=== PATIENT | male | born 1970 | race American Indian/Alaskan Native ===

== ENCOUNTER 2018-03-08 14:19 | Emergency (ER) | payer SELFPAY ==
--- NOTE | 2018-03-08 18:14 | Emergency Department Report ---
ED General Adult HPI - General Chief complaint: Extremity Problem,Nontraumatic Stated complaint: SWELLING IN HANDS / HTN Time Seen by Provider: 03/08/18 18:03 Source: patient Mode of arrival: Ambulatory Limitations: No Limitations - History of Present Illness Initial comments: Kwaku is 47 years old male history of hypertension. Patient stated that he is out of his medication for more than 7 month. He stated that he does not have insurance. Patient also complaining of right hand swelling and redness for the last 4 days. Patient denied any fever, headache, neck pain or neck stiffness, chest pain or shortness of breath. - Related Data Previous Rx's Medication Instructions Recorded Last Taken Type Atenolol [Tenormin] 50 mg PO DAILY #30 tab 08/21/14 Unknown Rx HYDROcodone/ACETAMINOPHEN [Lortab 1 each PO Q6HR PRN #10 tablet 08/21/14 Unknown Rx 5-325 mg Tablet] NIFEdipine XL [Procardia Xl] 60 mg PO QDAY #30 tablet 08/21/14 Unknown Rx Allergies Allergy/AdvReac Type Severity Reaction Status Date / Time Penicillins Allergy Unknown Verified 08/21/14 14:21 ED Review of Systems ROS: Stated complaint: SWELLING IN HANDS / HTN Other details as noted in HPI Comment: All other systems reviewed and negative Constitutional: denies: chills, fever Respiratory: denies: cough, orthopnea, shortness of breath, SOB with exertion Cardiovascular: denies: chest pain, palpitations, dyspnea on exertion Gastrointestinal: denies: abdominal pain, nausea, vomiting Neurological: denies: headache, weakness ED Past Medical Hx - Past Medical History Hx Hypertension: Yes Additional medical history: gout - Social History Smoking Status: Current Some Day Smoker Substance Use Type: None - Medications Home Medications: Home Medications Medication Instructions Recorded Confirmed Last Taken Type Atenolol [Tenormin] 50 mg PO DAILY #30 tab 08/21/14 Unknown Rx HYDROcodone/ACETAMINOPHEN [Lortab 1 each PO Q6HR PRN #10 tablet 08/21/14 Unknown Rx 5-325 mg Tablet] NIFEdipine XL [Procardia Xl] 60 mg PO QDAY #30 tablet 08/21/14 Unknown Rx ED Physical Exam - General Limitations: No Limitations General appearance: alert, in no apparent distress - Head Head exam: Present: atraumatic, normocephalic, normal inspection - Eye Eye exam: Present: normal appearance - ENT ENT exam: Present: normal exam - Neck Neck exam: Present: normal inspection, full ROM. Absent: tenderness, meningismus - Respiratory Respiratory exam: Present: normal lung sounds bilaterally. Absent: respiratory distress, wheezes, rales, rhonchi, stridor, chest wall tenderness - Cardiovascular Cardiovascular Exam: Present: regular rate, normal rhythm, normal heart sounds - GI/Abdominal GI/Abdominal exam: Present: soft, normal bowel sounds. Absent: distended, tenderness, guarding, rebound, rigid, mass, bruit, pulsatile mass - Extremities Exam Extremities exam: Present: full ROM, normal capillary refill, other (the dorsum of the right hand showed warmness, redness with clinical evidence of cellulitis. No clinical evidence of abscess or necrotizing fasciitis.) - Back Exam Back exam: Present: normal inspection, full ROM. Absent: tenderness, CVA tenderness (R), CVA tenderness (L), muscle spasm, paraspinal tenderness, vertebral tenderness - Neurological Exam Neurological exam: Present: alert, oriented X3, CN II-XII intact, normal gait - Skin Skin exam: Present: warm, intact, normal color ED Course Vital Signs 03/08/18 14:31 Temperature 98.7 F Pulse Rate 94 H Respiratory 16 Rate Blood Pressure 185/123 O2 Sat by Pulse 100 Oximetry Critical care attestation.: If time is entered above; I have spent that time in minutes in the direct care of this critically ill patient, excluding procedure time. ED Disposition Clinical Impression: Malignant hypertension, Cellulitis of hand Disposition: DC-01 TO HOME OR SELFCARE Is pt being admited?: No Condition: Stable Instructions: Hypertension (ED), Cellulitis (ED) Referrals: PRIMARY CARE,MD [Primary Care Provider] - 3-5 Days
[2018-03-08 18:45] VITALS: BP 180/113
== END 2018-03-08 18:52 | disposition home or self-care (01) ==
LOC: ED 14:19
DX: I10 Essential (primary) hypertension (principal); L03.113 Cellulitis of right upper limb; F17.200 Nicotine dependence, unspecified, uncomplicated; Z88.0 Allergy status to penicillin
CPT/HCPCS: 99282

== ENCOUNTER 2019-01-10 05:24 | Inpatient (IN) | payer SELFPAY ==
[2019-01-10] MEDS ORDERED: ASPIRIN PO ONE (05:30)
[2019-01-10 05:51] LABS: Basophils # (Auto) 0.1 K/mm3 (0.0-0.1); Basophils % (Auto) 0.6 % (0.0-1.8); Eosinophils % (Auto) 0.5 % (0.0-4.3); Hematocrit 44.3 % (35.5-45.6); Hemoglobin 15.5 gm/dl (11.8-15.2); Lymphocytes # (Auto) 2.5 K/mm3 (1.2-5.4); Lymphocytes % (Auto) 24.6 % (13.4-35.0); Mean Corpuscular HGB Conc 35 % (32-34); Mean Corpuscular Volume 97 fl (84-94); Monocytes # (Auto) 0.6 K/mm3 (0.0-0.8); Monocytes % (Auto) 6.1 % (0.0-7.3); Platelet Count 221 K/mm3 (140-440); Red Blood Count 4.59 M/mm3 (3.65-5.03); Red Cell Distribution Width 12.6 % (13.2-15.2)
[2019-01-10] MEDS ORDERED: HEPARIN 10,000 UNITS/10 ML IV ONE (06:02)
[2019-01-10 06:04] LABS: BUN/Creatinine Ratio 8; Blood Urea Nitrogen 9 mg/dL (9-20); Calcium 8.4 mg/dL (8.4-10.2); Hemolysis Index 7
[2019-01-10] MEDS ORDERED: NITRO-BID 2% TP ONE (06:05)
[2019-01-10] MEDS ORDERED: ZOFRAN IV ONE (06:06)
[2019-01-10] MEDS ORDERED: SUBLIMAZE IV ONE (06:06)
--- NOTE | 2019-01-10 06:06 | Emergency Department Report ---
HPI - General Chief Complaint: Chest Pain Time Seen by Provider: 01/10/19 06:01 - [facility] HPI: Room 6 The patient is a 48-year-old male presenting with a chief complaint of chest pain. The patient states for the past 4-5 hours he's had left-sided chest pain. The patient states the pain has been intermittent and he describes the pain as a discomfort. Patient denies shortness of breath but admits to nausea and vomiting. The patient gives his pain a score of 7/10 Location: Chest Duration: [See above] Quality: "Discomfort" Severity: 7/10 Modifying factors: [see above] Context: [see above] Mode of transportation: [not driving] ED Past Medical Hx - Past Medical History Previous Medical History?: Yes Hx Hypertension: Yes Additional medical history: gout - Surgical History Past Surgical History?: No - Family History Family history: no significant - Social History Smoking Status: Current Every Day Smoker Substance Use Type: Alcohol - Medications Home Medications: Home Medications Medication Instructions Recorded Confirmed Last Taken Type Atenolol [Tenormin] 50 mg PO DAILY #30 tab 08/21/14 Unknown Rx HYDROcodone/ACETAMINOPHEN [Lortab 1 each PO Q6HR PRN #10 tablet 08/21/14 Unknown Rx 5-325 mg Tablet] NIFEdipine XL [Procardia Xl] 60 mg PO QDAY #30 tablet 08/21/14 Unknown Rx Atenolol [Tenormin] 50 mg PO DAILY #30 tab 03/08/18 Unknown Rx Doxycycline [Vibramycin CAP] 100 mg PO Q12HR #20 capsule 03/08/18 Unknown Rx NIFEdipine XL [Procardia Xl] 60 mg PO QDAY #30 tablet 03/08/18 Unknown Rx ED Review of Systems ROS: Stated complaint: CHEST PAIN Other details as noted in HPI Constitutional: denies: diaphoresis Eyes: denies: eye pain ENT: denies: throat pain Respiratory: denies: shortness of breath Cardiovascular: chest pain Endocrine: no symptoms reported Gastrointestinal: nausea, vomiting Genitourinary: denies: dysuria Musculoskeletal: denies: back pain Neurological: denies: headache Physical Exam - Physical Exam Physical Exam: GENERAL: The patient is well-developed well-nourished male lying on stretcher not appearing to be in acute distress. [] HEENT: Normocephalic. Atraumatic. Extraocular motions are intact. Patient has moist mucous membranes. NECK: Supple. No meningitic signs are noted. There is no adenopathy noted. CHEST/LUNGS: There is no respiratory distress noted. HEART/CARDIOVASCULAR: Regular. There is no tachycardia. ABDOMEN: There is no abdominal distention. SKIN: There is no rash. There is no edema. There is no diaphoresis. NEURO: The patient is awake, alert, and oriented. The patient is cooperative. The patient has normal speech and gait. MUSCULOSKELETAL: There is no evidence of acute injury. ED Course - Consultations Consultation #1: 01/10/19 05:44 First EKG sent to Dr. Vo and case discussed- epeat EKG 05:58 Second EKG sent to Dr. Vo- activate code STEMI ED Medical Decision Making - Lab Data Result diagrams: 01/10/19 05:38 - EKG Data -: EKG Interpreted by Me EKG shows normal: sinus rhythm Rate: normal - EKG Data When compared to previous EKG there are: previous EKG unavailable Interpretation: acute TN - Differential Diagnosis stemi Critical care attestation.: If time is entered above; I have spent that time in minutes in the direct care of this critically ill patient, excluding procedure time. 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
[2019-01-10 06:26] LABS: INR 0.95 (0.87-1.13); Partial Thromboplastin Time 24.7 Sec. (24.2-36.6)
[2019-01-10] MEDS ORDERED: HEPARIN/ 0.45% NACL-25,000 UNIT/500 ML 25,000 UNIT/500 ML BAG IV SCH (06:30)
[2019-01-10] MEDS ORDERED: HEPARIN/NS 5000 UNIT/500ML(CATH LAB) 1,000 ML IR ONE (06:38)
[2019-01-10] MEDS ORDERED: XYLOCAINE 2% INFILTRATI ONE (06:39)
[2019-01-10] MEDS ORDERED: NITROGLYCERIN SYRINGE 3 ML ONE (06:39)
[2019-01-10] MEDS ORDERED: CALAN ONE (06:39)
--- NOTE | 2019-01-10 06:42 | XRay Report ---
PROCEDURE: XR CHEST 1V AP TECHNIQUE: A portable upright view of the chest was submitted. HISTORY: Chest Pain COMPARISONS: None FINDINGS: The heart size and mediastinum appear normal. The lungs are not congested. There are no infiltrates o r effusions. The bones and soft tissues do not show any acute changes. IMPRESSION: No acute cardiopulmonary process.. This document is electronically signed by Rylan Acosta MD., January 10 2019 06:40:11 AM ET
[2019-01-10] MEDS ORDERED: NACL 0.9% 1000 ML 1,000 ML ONE ×2 (06:44→07:27)
[2019-01-10] MEDS ORDERED: SUBLIMAZE ONE (06:45)
[2019-01-10] MEDS ORDERED: VERSED ONE (06:45)
[2019-01-10] MEDS: HEPARIN 10,000 UNITS/10 ML ONE ×3 (06:49→07:38)
[2019-01-10] MEDS ORDERED: CORDARONE IV ONE (07:18)
[2019-01-10] MEDS ORDERED: INTROPIN DRIP 800 MG/D5W 250 ML 800 MG/250 ML BAG IV ONE (07:21)
[2019-01-10] MEDS ORDERED: PLAVIX ONE (07:47)
[2019-01-10] MEDS ORDERED: ALUM-MAG HYDROX-SIMETH 200-200-20MG/5ML ONE (07:47)
--- NOTE | 2019-01-10 08:09 | Cardiac Catherization Report ---
CARDIAC CATHETERIZATION REFERRING PHYSICIAN: ER physician, Dr. Graham. INDICATION FOR PROCEDURE: The patient is a pleasant 48-year-old gentleman, who presents with 7 hours of chest pain, found to have borderline inferior ST elevation. STEMI protocol was initiated. Heparin and aspirin given. The patient with active chest pain. 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 Yaw's test in right hand was normal. A 2 mL of 2% lidocaine used to anesthetize the right wrist. A standard 6-Croatian hydrophilic sheath was placed in the right radial artery via modified Seldinger technique. Spasmolytic cocktail was given, buffered with blood. Next, a JL3.5 catheter used to engage the left main. No dampening or ventricularization. Cineangiography performed in all projections. Next JR4 guide used to cross the aortic valve under fluoroscopic guidance. Left ventriculography performed in 30 BROOKS and 30 SWEDISH projections via hand injections, catheter flushed. Manual pullback performed with continuous pressure monitoring. Catheter used to engage the right coronary. No dampening or ventricularization. Cineangiography performed in all projections. FINDINGS: Aortic pressure is 150/80, LV pressure is 150, LVP of 15 mmHg. Left ventriculography reveals basal inferior dyskinesis with preserved ejection fraction of 55-60%. Left main without significant disease, bifurcates left anterior descending and left circumflex. The left system is a large system, codominant. Left circumflex is a moderate sized vessel, courses AV groove, gives off a left PDA and OM trunk. Mild to moderate nonobstructive disease noted, 25-30% mid left circumflex stenosis identified. LAD is a large vessel, courses anterior intergroove, wraps around the apex. There is a 25% stenosis in the mid LAD, but no obstructive disease. The right coronary is a very tortuous vessel with a 100% acute thrombotic occlusion in the mid segment, tortuous and small. At this point, we turned our attention to PCI. Given location of lesion and the patient's heart rate, a temporary venous pacemaker was placed under fluoroscopic guidance after right femoral venous access was gained. Heparin was given. Abnormal ACT is confirmed. At this point, we used a Whisper extra support wire to cross the lesion, which is very tortuous with minimal difficulty. Next, used a 2.0 x 12 balloon to predilate the lesion. Resumption of VERA 3 flow at this point. AIVR was noted at this time temporarily. IV amiodarone was given. Next, we placed a 2.25 x 12 Jose drug-eluting stent at the culprit lesion. Next, we placed another 2.25 x 18 overlapping proximally Jose stent with excellent final angiographic result with a balloon dilated overlap, excellent final angiographic result. No complications. Given the significant tortuosity and small sized vessel, I did not feel like intravascular ultrasound would pass through the tortuosity and small vessel. Excellent final result, VERA 3 flow. The patient is chest pain free. CONCLUSIONS: 1. Acute atherothrombotic occlusion of a small tortuous mid right codominant mid right coronary in the setting of an inferior ST elevation myocardial infarction. A. Successful primary PCI with placement of 2 overlapping drug-eluting stents (Jose 2.25 x 12, 2.25 x 18) with excellent final angiographic result. Chest pain is resolved. 2. Mild to moderate nonobstructive disease in the left system. 3. Left ventriculography reveals inferobasal dyskinesis, estimated ejection fraction of 55-60%. 4. Normal LVEDP. 5. Hypertension. At this point, we will pull the temporary pacemaker a standard radial care. Aspirin, Plavix, statin, blood pressure control. Aggressive primary and secondary prevention measures. The patient will be admitted to the hospital. Echocardiogram will be ordered. Nutrition consult. Results of procedure were explained to the patient and family. All questions and concerns were addressed. The patient is clinically stable at this point. JOB# [id number] GEOFF/VASU
--- NOTE | 2019-01-10 08:40 | Consultation ---
CARDIOLOGY CONSULTATION REFERRING PHYSICIAN: Pam Graham MD, in the ER. REASON FOR CONSULTATION: Advice and opinion regarding chest pain and abnormal EKG. HISTORY OF PRESENT ILLNESS: The patient is a 48-year-old gentleman with a history of hypertension, has not seen physicians in sometime with active tobacco abuse who presents with at least 6 hours of chest pain. He is not diaphoretic, but having active chest pain. No nausea or vomiting. No fevers or chills. No headache. EKG reveals inferior ST elevation. STEMI protocol was initiated. No history of bleeding diathesis, abdominal pain, hematochezia, melena, rash, syncope. PAST MEDICAL HISTORY: Hypertension and tobacco abuse. SOCIAL HISTORY: Denies any drug or alcohol abuse. 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 Unknown family. FAMILY HISTORY: He is unclear about his family history of heart disease. He does take antihypertensives, but does not have a primary care physician. REVIEW OF SYSTEMS: As per HPI. ALLERGIES: ALLERGIC TO PENICILLIN. OUTPATIENT MEDICATIONS: Reviewed. PHYSICAL EXAMINATION: VITAL SIGNS: Blood pressure is 140/80. He is afebrile. Tele reveals sinus rhythm, no dysrhythmias. O2 sat is 99% on room air. GENERAL: This is a middle-aged gentleman in mild distress. HEENT: Sclerae anicteric. PERRL. NECK: Supple. No mass or JVD. CHEST: Clear to auscultation bilaterally. Good air movement. CARDIOVASCULAR: Regular rate, regular rhythm, S1, S2. ABDOMEN: Soft, nontender, nondistended. Normoactive bowel sounds in all 4 quadrants. No mass or bruits. EXTREMITIES: No cyanosis, clubbing, edema. Good peripheral pulses. SKIN: Intact. No rashes. LABORATORY DATA: Labs are pending. DIAGNOSTIC DATA: EKG reveals inferior ST elevation with mild reciprocal lateral changes. ASSESSMENT: Acute inferior ST elevation myocardial infarction, late presentation greater than 6 hours. Urgent left heart catheterization versus STEMI call. The patient reloaded with aspirin and heparin. Further plans contingent on cath results. JOB# [id number] SBM/NTS
--- NOTE | 2019-01-10 09:59 | Event Note ---
Date: 01/10/19 Pt presented this AM with inferior STEMI and subsequently underwent LHC with PCI of RCA. Pt tx to CCU. Currently stable cardiac status with no current cardiac complaints. Await echo. Cont present medical management. Ronny MORALES NP / DR. HAY
[2019-01-10] MEDS: ECOTRIN PO SCH (10:32)
[2019-01-10] MEDS: NACL 0.9% 1000 ML 1,000 ML IV SCH (17:26)
[2019-01-10] MEDS ORDERED: NITROSTAT SL ONE (19:28)
[2019-01-10] MEDS ORDERED: HEPARIN/ 0.45% NACL-25,000 UNIT/500 ML ONE (19:28)
[2019-01-10] MEDS: ZESTRIL PO SCH (21:58)
--- NOTE | 2019-01-11 03:52 | XRay Report ---
PROCEDURE: XR CHEST 1V AP TECHNIQUE: Chest radiograph single view. HISTORY: post pci COMPARISONS: 01/10/2019 . FINDINGS: Heart: Normal. Mediastinum/Vessels: Normal. Lungs/Pleural space: Normal. Bony thorax: No acute osseous abnormality. Life support devices: None. IMPRESSION: No acute cardiopulmonary abnormality. This document is electronically signed by Saad Contreras MD., January 11 2019 03:50:43 AM ET
[2019-01-11 05:04] LABS: BUN/Creatinine Ratio 9; Blood Urea Nitrogen 9 mg/dL (9-20); Calcium 7.7 mg/dL (8.4-10.2); Creatine Kinase MB 19.6 ng/mL (0.0-4.0); Hemolysis Index 7
[2019-01-11 05:24] LABS: Chol/HDL Ratio 4.37 %; HDL Cholesterol 32 mg/dL (40-59); LDL Cholesterol,Direct 87 mg/dL (50-130)
[2019-01-11] MEDS: NACL 0.9% 1000 ML 1,000 ML IV SCH (06:40)
[2019-01-11] MEDS: ECOTRIN PO SCH (10:25)
[2019-01-11] MEDS: PLAVIX PO SCH (10:26)
[2019-01-11] MEDS: ZESTRIL PO SCH (10:26)
--- NOTE | 2019-01-11 11:08 | Progress Note ---
Assessment and Plan Echo reviewed - EF 50-55%, no significant abnormalities. Currently stable cardiac status. Initiate lopressor. Cont all other present cardiac management. Tx to tele and increase activity/ambulation. Likely d/c home in AM. The patient has been seen in conjunction with Dr. Washington who agrees with the assessment and plan of care. - Patient Problems (1) STEMI (ST elevation myocardial infarction) Current Visit: Yes Status: Acute (2) CAD (coronary artery disease) Current Visit: Yes Status: Chronic (3) Stented coronary artery Current Visit: Yes Status: Chronic (4) HTN (hypertension) Current Visit: Yes Status: Chronic (5) Tobacco use Current Visit: Yes Status: Chronic Subjective Date of service: 01/11/19 Principal diagnosis: stemi Interval history: pt resting in bed, no current complaints. Objective Last Vital Signs Temp 98.4 F 01/11/19 08:00 Pulse 69 01/11/19 10:26 Resp 13 01/11/19 08:00 BP 129/82 01/11/19 10:26 Pulse Ox 96 01/11/19 08:00 - Physical Examination General: No Apparent Distress HEENT: Positive: PERRL, Normocephaly, Mucus Membranes Moist Neck: Positive: neck supple, trachea midline Cardiac: Positive: Reg Rate and Rhythm, S1/S2 Lungs: Positive: clear to auscultation Neuro: Positive: Grossly Intact Abdomen: Positive: Soft. Negative: Tender Skin: Negative: Rash Musculoskeletal: No Pain Extremities: Absent: edema - Labs and Meds Cardiac Enzymes 01/11/19 Range/Units 03:56 CK-MB (CK-2) 19.6 H (0.0-4.0) ng/mL Lipids 01/11/19 Range/Units 03:56 Triglycerides 281 H (2-149) mg/dL Cholesterol 140 (50-199) mg/dL HDL Cholesterol 32 L (40-59) mg/dL Cholesterol/HDL Ratio 4.37 % Comprehensive Metabolic Panel 01/11/19 Range/Units 03:56 Sodium 141 (137-145) mmol/L Potassium 3.7 (3.6-5.0) mmol/L Chloride 104.5 (98-107) mmol/L Carbon Dioxide 26 (22-30) mmol/L BUN 9 (9-20) mg/dL Creatinine 1.0 (0.8-1.5) mg/dL Glucose 111 H (75-100) mg/dL Calcium 7.7 L (8.4-10.2) mg/dL - Imaging and Cardiology EKG: report reviewed, image reviewed Echo: report reviewed Cardiac cath: report reviewed - Telemetry EKG Rhythm: Sinus Rhythm
--- NOTE | 2019-01-11 11:12 | Consultation ---
History of Present Illness Consult date: 01/11/19 Reason for consult: chest pain, other History of present illness: 48-year-old -Mal[place] male presenting with a chief complaint of chest pa in. Currently admission notes from patient, he presented with 4-5 hours of chest pain mostly on the left side. They have been intermittent also does call for persistent. No shortness of breath, hemoptysis noted but felt know she had a and have vomiting. Pain was 7/10 in intensity. EKG showed inferior ST segment elevation with reciprocal changes. Patient presented this a.m. when inferior STEMI and subsequently underwent LHC with PCI of RCA. Patient transferred to ICU for treatment. Awaiting echocardiogram and cardiac management. CCM consultation requested while in the ICU Medications and Allergies Allergies Allergy/AdvReac Type Severity Reaction Status Date / Time Penicillins Allergy Unknown Verified 08/21/14 14:21 Home Medications Medication Instructions Recorded Confirmed Last Taken Type HYDROcodone/ACETAMINOPHEN [Lortab 1 each PO Q6HR PRN #10 tablet 08/21/14 01/10/19 Unknown Rx 5-325 mg Tablet] Atenolol [Tenormin] 50 mg PO DAILY #30 tab 03/08/18 01/10/19 01/08/19 Rx NIFEdipine XL [Procardia Xl] 60 mg PO QDAY 01/10/19 01/10/19 01/08/19 History Active Meds: Active Medications Aspirin (Ecotrin) 325 mg PO QDAY [facility] Last Admin: 01/11/19 10:25 Dose: 325 mg Documented by: Atorvastatin Calcium (Lipitor) 80 mg PO QHS [facility] Last Admin: 01/10/19 21:59 Dose: 80 mg Documented by: Clopidogrel Bisulfate (Plavix) 75 mg PO QDAY [facility] Last Admin: 01/11/19 10:26 Dose: 75 mg Documented by: Lisinopril (Zestril) 10 mg PO QDAY [facility] Last Admin: 01/11/19 10:26 Dose: 10 mg Documented by: Metoprolol Tartrate (Lopressor) 12.5 mg PO BID [facility] Physical Examination Vital signs: Vital Signs Temp Pulse Resp BP Pulse Ox 97.5 F L 71 18 187/123 98 01/10/19 05:29 01/10/19 05:29 01/10/19 05:29 01/10/19 05:29 01/10/19 05:29 General appearance: no acute distress Eyes: non-icteric ENT: oropharynx moist Neck: supple, no JVD Effort: normal Ascultation: Bilateral: clear Cardiovascular: regular rate and rhythm Gastrointestinal: normoactive bowel sounds, non-distended Integumentary: normal Extremities: no cyanosis, no edema, other (no bleeding) Musculoskeletal: no deformities normal mental status, non-focal exam, CN II-XII normal, motor strength normal and mood appropriate, affect normal Results - Laboratory Findings CBC and BMP: 01/10/19 05:38 01/11/19 03:56 PT/INR, D-dimer PT 13.3 Sec. (12.2-14.9) 01/10/19 06:09 INR 0.95 (0.87-1.13) 01/10/19 06:09 Abnormal lab findings: Abnormal Labs 01/10/19 01/10/19 01/11/19 05:38 05:38 03:56 Hgb 15.5 H MCV 97 H MCH 34 H MCHC 35 H RDW 12.6 L Sodium 135 L Chloride 97.8 L Glucose 131 H 111 H Calcium 7.7 L Total Creatine Kinase 386 H CK-MB (CK-2) 19.6 H CK-MB (CK-2) Rel Index 5.0 H Troponin T 1.470 H* D Triglycerides 281 H HDL Cholesterol 32 L - Diagnostic Findings Chest x-ray: report reviewed, image reviewed Assessment and Plan STEMI. -Status post successful LHC procedure Hypertension. Recently uncontrolled Hyperlipidemia Former smoker. May benefit from screening spirometry for COPD Recommendations Continue aspirin, Plavix atorvastatin. See her blood pressure monitoring. Progress ambulation as appropriate by cardiology Transfer outside the ICU once cleared cardiology DVT prophylaxis Oxygen support if needed for the saturation below 92% Outpatient spirometry/PFT for COPD screening We'll continue to follow while in the ICU and then sign off.
[2019-01-11] MEDS: LOPRESSOR PO SCH (21:43)
[2019-01-11] MEDS ORDERED: TYLENOL PO PRN (22:05)
[2019-01-12 05:09] VITALS: BP 147/90
[2019-01-12] MEDS: ECOTRIN PO SCH (09:43)
[2019-01-12] MEDS: LOPRESSOR PO SCH (09:43)
[2019-01-12] MEDS: ZESTRIL PO SCH (09:43)
[2019-01-12] MEDS: PLAVIX PO SCH (09:43)
--- NOTE | 2019-01-12 11:22 | Progress Note ---
Assessment and Plan Currently stable cardiac status. Pt to discharge home today on current regimen. Follow up in our [place] office with Dr. Lamberto Vo on 01/26/2019 @ 1:30PM. The patient has been seen in conjunction with Dr. Washington who agrees with the assessment and plan of care. - Patient Problems (1) STEMI (ST elevation myocardial infarction) Current Visit: Yes Status: Acute (2) CAD (coronary artery disease) Current Visit: Yes Status: Chronic (3) Stented coronary artery Current Visit: Yes Status: Chronic (4) HTN (hypertension) Current Visit: Yes Status: Chronic (5) Tobacco use Current Visit: Yes Status: Chronic Subjective Date of service: 01/12/19 Principal diagnosis: stemi Interval history: pt resting in bed, no current complaints. Objective Last Vital Signs Temp 98.6 F 01/12/19 03:55 Pulse 60 01/12/19 03:55 Resp 15 01/12/19 03:55 BP 147/90 01/12/19 03:55 Pulse Ox 95 01/12/19 03:55 - Physical Examination General: No Apparent Distress HEENT: Positive: PERRL, Normocephaly, Mucus Membranes Moist Neck: Positive: neck supple, trachea midline Cardiac: Positive: Reg Rate and Rhythm, S1/S2 Lungs: Positive: Decreased Breath Sounds Neuro: Positive: Grossly Intact Abdomen: Positive: Soft. Negative: Tender Skin: Negative: Rash Musculoskeletal: No Pain Extremities: Absent: edema - Imaging and Cardiology EKG: report reviewed, image reviewed Echo: report reviewed ( EF 50-55%, no significant abnormalities. ) Cardiac cath: report reviewed - Telemetry EKG Rhythm: Sinus Rhythm - EKG Sinus rhythms and dysrhythmias: sinus rhythm
--- NOTE | 2019-01-12 11:28 | Discharge Summary ---
Providers - Providers Date of Admission: 01/10/19 07:56 Date of discharge: 01/12/19 Attending physician: MARCE SIFUENTES 01/10/19 Consult to Cardiac Rehabilitation [CONS] Routine Reason For Exam: post pci 01/10/19 09:59 Consult to Physician [CONS] Routine Comment: Consulting Provider: MELINDA FUNES Physician Instructions: Reason For Exam: CCU care s/p STEMI 01/11/19 10:29 Consult to Dietitian/Nutrition [CONS] Routine Physician Instructions: Reason For Exam: for [employer] Diet/teach s/p PCI Reason for Consult: Diet education [facility] Reason for admission: stemi Condition: Serious Pertinent studies: [facility] with PCI and echo - see reports Procedures: [facility] with PCI and echo - see reports Hospital course: Pt presented on 01/10/2019 with c/o chest pain, EKG showed inferior ST elevation and code STEMI was activated. Pt taken to [employer] [facility] per STEMI protocol and subsequently underwent PCI of RCA. Echo showed EF 50-55%, no significant abnormalities. Pt has remained clinically and hemodynamically stable since PCI and is medically stable for discharge home today. Disposition: DC-01 TO HOME OR SELFCARE - Discharge Diagnoses (1) STEMI (ST elevation myocardial infarction) Status: Acute (2) CAD (coronary artery disease) Status: Chronic (3) Stented coronary artery Status: Chronic (4) HTN (hypertension) Status: Chronic (5) Tobacco use Status: Chronic Core Measure Documentation - Palliative Care Palliative Care/ Comfort Measures: Not Applicable - Core Measures Any of the following diagnoses?: acute IA - Acute IA Discharge Requirements Aspirin at discharge: Yes SWAPNA/ARB for LVSD if EF <40%: Yes Beta kacie at discharge: Yes Statin for LDL = or >100 mg/dl on DC: Yes Exam - Constitutional Vitals: Temp Pulse Resp BP Pulse Ox 98.6 F 60 15 147/90 95 01/12/19 03:55 01/12/19 03:55 01/12/19 03:55 01/12/19 03:55 01/12/19 03:55 General appearance: Present: no acute distress - EENT Eyes: Present: PERRL, EOM intact ENT: hearing intact, clear oral mucosa, dentition normal - Neck Neck: Present: supple, normal ROM - Respiratory Respiratory effort: normal Respiratory: bilateral: CTA - Cardiovascular Rhythm: regular Heart Sounds: Present: S1 & S2 - Extremities Extremities: no ischemia, pulses intact, pulses symmetrical Peripheral Pulses: within normal limits - Abdominal General gastrointestinal: Present: soft, non-tender - Integumentary Integumentary: Present: clear, warm, dry - Musculoskeletal Musculoskeletal: strength equal bilaterally - Psychiatric Psychiatric: appropriate mood/affect - Neurologic Neurologic: CNII-XII intact Plan Activity: advance as tolerated Diet: low fat, low cholesterol, low salt Wound: open to air, keep clean and dry, per your surgeon's advice [facility] [Primary Care Provider] - 3-5 Days MARCE SIFUENTES MD [Staff Physician] - 7 Days ([place] office 01/26/2019 @ 1:30PM) Prescriptions: AtorvaSTATin [Lipitor] 80 mg PO QHS #30 tablet Metoprolol [Lopressor] 12.5 mg PO BID #60 tablet Clopidogrel [Plavix] 75 mg PO QDAY #30 tablet Lisinopril [Zestril TAB] 10 mg PO QDAY #30 tablet
== END 2019-01-12 13:40 | disposition home or self-care (01) | DRG 247 ==
LOC: ED 05:24 → CC1 07:56 → 4A 01-11 15:05
PROVIDERS: ADMIT Internal Medicine; ATTEND Internal Medicine
PROC: 027035Z Dilation of Coronary Artery, One Artery with Two Drug-eluting Intraluminal Devices, Percutaneous Approach (ICD-10-PCS; principal; 2019-01-10)
PROC: 4A023N7 Measurement of Cardiac Sampling and Pressure, Left Heart, Percutaneous Approach (ICD-10-PCS; 2019-01-10)
PROC: B2111ZZ Fluoroscopy of Multiple Coronary Arteries using Low Osmolar Contrast (ICD-10-PCS; 2019-01-10)
PROC: B2151ZZ Fluoroscopy of Left Heart using Low Osmolar Contrast (ICD-10-PCS; 2019-01-10)
DX: I21.19 ST elevation (STEMI) myocardial infarction involving other coronary artery of inferior wall (principal); I10 Essential (primary) hypertension; I25.10 Atherosclerotic heart disease of native coronary artery without angina pectoris; I25.82 Chronic total occlusion of coronary artery; F17.200 Nicotine dependence, unspecified, uncomplicated; E78.5 Hyperlipidemia, unspecified; M10.9 Gout, unspecified; Z88.0 Allergy status to penicillin; Z79.899 Other long term (current) drug therapy
CPT/HCPCS: 33210; 36415; 71045; 80048; 80061; 82550; 82553; 84484; 85025; 85347; 85610; 85730; 86850; 86900; 86901; 92941; 93005; 93010; 93306; 93458; G0378; A9270-GY; C1725; C1769; C1874; C1887; C1894; C9606; J0282; J1265; J1644; J2250; J2405; J3010; J7030; Q9967

== ENCOUNTER 2019-08-15 00:24 | Emergency (ER) | payer SELFPAY ==
[2019-08-15 00:57] LABS: Basophils # (Auto) 0.1 K/mm3 (0.0-0.1); Basophils % (Auto) 0.5 % (0.0-1.8); Eosinophils % (Auto) 0.2 % (0.0-4.3); Hematocrit 43.5 % (35.5-45.6); Hemoglobin 14.9 gm/dl (11.8-15.2); Lymphocytes # (Auto) 1.5 K/mm3 (1.2-5.4); Lymphocytes % (Auto) 14.1 % (13.4-35.0); Mean Corpuscular HGB Conc 34 % (32-34); Mean Corpuscular Volume 97 fl (84-94); Monocytes # (Auto) 0.8 K/mm3 (0.0-0.8); Monocytes % (Auto) 7.2 % (0.0-7.3); Platelet Count 179 K/mm3 (140-440); Red Blood Count 4.47 M/mm3 (3.65-5.03); Red Cell Distribution Width 14.1 % (13.2-15.2)
[2019-08-15] MEDS ORDERED: KETOROLAC 30 MG/1 ML INJ IV ONE (01:37)
--- NOTE | 2019-08-15 01:41 | XRay Report ---
CHEST 2 VIEWS INDICATION / CLINICAL INFORMATION: HTN. Headache since this morning. COMPARISON: 01/11/19 FINDINGS: SUPPORT DEVICES: None. HEART / MEDIASTINUM: No significant abnormality. LUNGS / PLEURA: No significant pulmonary or pleural abnormality. No pneumothorax. ADDITIONAL FINDINGS: No significant additional findings. IMPRESSION: 1. No acute findings. No significant change. Signer Name: Genesis Kahn MD Signed: 08/15/2019 1:36 AM Workstation Name: [id number]
[2019-08-15 01:44] LABS: BUN/Creatinine Ratio 12; Blood Urea Nitrogen 11 mg/dL (9-20); Calcium 9.4 mg/dL (8.4-10.2); Hemolysis Index 5
[2019-08-15] MEDS ORDERED: cloNIDine 0.2 MG TAB PO ONE (01:50)
[2019-08-15] MEDS ORDERED: cloNIDine 0.2 MG TAB ONE (01:53)
--- NOTE | 2019-08-15 02:25 | Cat Scan Report ---
CT HEAD WITHOUT CONTRAST INDICATION / CLINICAL INFORMATION: severe headache. TECHNIQUE: All CT scans at this location are performed using CT dose reduction for ALARA by means of automated e xposure control. COMPARISON: None available. FINDINGS: HEMORRHAGE: Right subdural hematoma extending over the entire right hemisphere and slightly into the interhemispheric fissure. Greatest thickness is 12 mm in the right parietal region. EXTRA-AXIAL SPACES: Normal in size and morphology for the patient's age. VENTRICULAR SYSTEM: Mild mass effect on the right lateral ventricle. CEREBRAL PARENCHYMA: No significant abnormality. No acute territorial infarct. MIDLINE SHIFT OR HERNIATION: 4 mm of [id number]-[id number] shift. No definite herniation. CEREBELLUM / BRAINSTEM: No significant abnormality. ORBITS: Normal as visualized. SOFT TISSUES of HEAD: No significant abnormality. CALVARIUM: No significant abnormality. PARANASAL SINUSES / MASTOID AIR CELLS: Normal as visualized. ADDITIONAL FINDINGS: None. IMPRESSION: 1. Right subdural hematoma measuring up to 12 mm in thickness with 4 mm of sfpia-qy-aywy shift. CRITICAL RESULT: Time of Discovery (TELERADIOLOGIST/CDT): 1:15 AM Time of Communication (TELERADIOLOGIST/CDT): 1:20 AM Licensed Practitioner Receiving Report: Dr. Henao in the ED Read Back Performed: Yes. Signer Name: Genesis Kahn MD Signed: 08/15/2019 2:21 AM Workstation Name: Mr. [email or web address]
[2019-08-15] MEDS ORDERED: MORPHINE 4 MG/1 ML INJ IV ONE (03:00)
[2019-08-15] MEDS ORDERED: levETIRAcetam 1000 MG/NS 0.75% 1,000 MG/100 ML BAG IV ONE (03:01)
--- NOTE | 2019-08-15 03:08 | Emergency Department Report ---
ED Headache HPI - General Chief Complaint: Headache Stated Complaint: HEADACHE/NAUSEA Time Seen by Provider: 08/15/19 01:21 - History of Present Illness Initial Comments: Patient is a 49-year-old -[place] male who states that approximately 24 hours ago he woke up with severe headache. Patient states his headache is worse headache of his life is throbbing and aching. Patient states he has blood pressure medicines and has been compliant. Patient states he has some mild nausea but no vomiting. Patient has no history of headaches. Patient denies any arm or leg deficit. Allergies/Adverse Reactions: Allergies Penicillins Allergy (Verified 08/21/14 14:21) Unknown Home Medications: Ambulatory Orders HYDROcodone/ACETAMINOPHEN [Lortab 5-325 mg Tablet] 1 each PO Q6HR PRN #10 tablet 08/21/14 Aspirin EC 325 mg PO QDAY tablet 01/12/19 AtorvaSTATin [Lipitor] 80 mg PO QHS #30 tablet 01/12/19 Clopidogrel [Plavix] 75 mg PO QDAY #30 tablet 01/12/19 Lisinopril [Zestril TAB] 10 mg PO QDAY #30 tablet 01/12/19 Metoprolol [Lopressor TAB] 12.5 mg PO BID #60 tablet 01/12/19 Metoprolol [Lopressor] 12.5 mg PO BID #60 tablet 01/12/19 ED Review of Systems ROS: Stated complaint: HEADACHE/NAUSEA Other details as noted in HPI Comment: All other systems reviewed and negative ED Past Medical Hx - Past Medical History Previous Medical History?: Yes Hx Hypertension: Yes Hx Heart Attack/AMI: Yes Hx HIV: No Additional medical history: gout - Surgical History Past Surgical History?: Yes Hx Coronary Stent: Yes (x2) - Social History Smoking Status: Never Smoker Substance Use Type: Alcohol - Medications Home Medications: Home Medications Medication Instructions Recorded Confirmed Last Taken Type HYDROcodone/ACETAMINOPHEN [Lortab 1 each PO Q6HR PRN #10 tablet 08/21/14 01/10/19 Unknown Rx 5-325 mg Tablet] Aspirin EC 325 mg PO QDAY tablet 01/12/19 Unknown Rx AtorvaSTATin [Lipitor] 80 mg PO QHS #30 tablet 01/12/19 Unknown Rx Clopidogrel [Plavix] 75 mg PO QDAY #30 tablet 01/12/19 Unknown Rx Lisinopril [Zestril TAB] 10 mg PO QDAY #30 tablet 01/12/19 Unknown Rx Metoprolol [Lopressor TAB] 12.5 mg PO BID #60 tablet 01/12/19 Unknown Rx Metoprolol [Lopressor] 12.5 mg PO BID #60 tablet 01/12/19 Unknown Rx ED Physical Exam - General Limitations: No Limitations General appearance: alert, in no apparent distress - Head Head exam: Present: atraumatic, normocephalic - Eye Eye exam: Present: normal appearance - ENT ENT exam: Present: mucous membranes moist - Neck Neck exam: Present: normal inspection - Respiratory Respiratory exam: Present: normal lung sounds bilaterally. Absent: respiratory distress, wheezes, rales, rhonchi - Cardiovascular Cardiovascular Exam: Present: regular rate, normal rhythm, normal heart sounds. Absent: systolic murmur, diastolic murmur, rubs, gallop - GI/Abdominal GI/Abdominal exam: Present: soft, normal bowel sounds. Absent: distended, tenderness, guarding, rebound - Rectal Rectal exam: Present: deferred - Extremities Exam Extremities exam: Present: normal inspection - Back Exam Back exam: Present: normal inspection - Neurological Exam Neurological exam: Present: alert, oriented X3, normal gait. Absent: motor sensory deficit, reflexes normal - Psychiatric Psychiatric exam: Present: normal affect, normal mood - Skin Skin exam: Present: warm, dry, intact, normal color. Absent: rash ED Course Vital Signs 08/15/19 08/15/19 08/15/19 00:32 01:14 01:15 Temperature 99.0 F Pulse Rate 71 59 L 64 Respiratory 18 17 15 Rate Blood Pressure 200/131 Blood Pressure 216/129 [Right] O2 Sat by Pulse 97 96 Oximetry 08/15/19 08/15/19 08/15/19 01:30 01:32 01:45 Temperature Pulse Rate 62 56 L 60 Respiratory 15 12 14 Rate Blood Pressure 197/124 188/128 Blood Pressure 197/124 [Right] O2 Sat by Pulse 95 99 95 Oximetry 08/15/19 08/15/19 08/15/19 01:54 02:02 02:15 Temperature Pulse Rate 58 L Respiratory Rate Blood Pressure 188/128 188/128 193/122 Blood Pressure [Right] O2 Sat by Pulse 99 96 Oximetry 08/15/19 08/15/19 02:30 02:55 Temperature Pulse Rate 61 Respiratory 12 Rate Blood Pressure 194/123 Blood Pressure 163/96 [Right] O2 Sat by Pulse 98 Oximetry - Reevaluation(s) Reevaluation #1: 08/15/19 03:00 Discussed the patient's case with [facility] and they were unable to accept the patient secondary to not having any ICU beds at this time Reevaluation #2: 08/15/19 03:51 That it is accepted at [facility] to the neuro ICU. ED Medical Decision Making - Lab Data Result diagrams: 08/15/19 00:39 08/15/19 00:39 Lab Results 08/15/19 08/15/19 08/15/19 Range/Units 00:39 00:39 00:39 WBC 10.6 (4.5-11.0) K/mm3 RBC 4.47 (3.65-5.03) M/mm3 Hgb 14.9 (11.8-15.2) gm/dl Hct 43.5 (35.5-45.6) % MCV 97 H (84-94) fl MCH 33 H (28-32) pg MCHC 34 (32-34) % RDW 14.1 (13.2-15.2) % Plt Count 179 (140-440) K/mm3 Lymph % (Auto) 14.1 (13.4-35.0) % Grant % (Auto) 7.2 (0.0-7.3) % Eos % (Auto) 0.2 (0.0-4.3) % Baso % (Auto) 0.5 (0.0-1.8) % Lymph # 1.5 (1.2-5.4) K/mm3 Grant # 0.8 (0.0-0.8) K/mm3 Eos # 0.0 (0.0-0.4) K/mm3 Baso # 0.1 (0.0-0.1) K/mm3 Seg Neutrophils % 78.0 H (40.0-70.0) % Seg Neutrophils # 8.3 H (1.8-7.7) K/mm3 Sodium 146 H (137-145) mmol/L Potassium 3.6 (3.6-5.0) mmol/L Chloride 104.2 (98-107) mmol/L Carbon Dioxide 24 (22-30) mmol/L Anion Gap 21 mmol/L BUN 11 (9-20) mg/dL Creatinine 0.9 (0.8-1.5) mg/dL Estimated GFR > 60 ml/min BUN/Creatinine Ratio 12 % Glucose 125 H (75-100) mg/dL Calcium 9.4 (8.4-10.2) mg/dL Troponin T < 0.010 (0.00-0.029) ng/mL NT-Pro-B Natriuret Pep 87.72 (0-900) pg/mL - Radiology Data CT HEAD WITHOUT CONTRAST INDICATION / CLINICAL INFORMATION: severe headache. TECHNIQUE: All CT scans at this location are performed using CT dose reduction for ALARA by means of automated exposure control. COMPARISON: None available. FINDINGS: HEMORRHAGE: Right subdural hematoma extending over the entire right hemisphere and slightly into the interhemispheric fissure. Greatest thickness is 12 mm in the right parietal region. EXTRA-AXIAL SPACES: Normal in size and morphology for the patient's age. VENTRICULAR SYSTEM: Mild mass effect on the right lateral ventricle. CEREBRAL PARENCHYMA: No significant abnormality. No acute territorial infarct. MIDLINE SHIFT OR HERNIATION: 4 mm of iispp-bk-lfqz shift. No definite herniation. CEREBELLUM / BRAINSTEM: No significant abnormality. ORBITS: Normal as visualized. SOFT TISSUES of HEAD: No significant abnormality. CALVARIUM: No significant abnormality. PARANASAL SINUSES / MASTOID AIR CELLS: Normal as visualized. ADDITIONAL FINDINGS: None. IMPRESSION: 1. Right subdural hematoma measuring up to 12 mm in thickness with 4 mm of lqpme-lh-ipzk shift. CRITICAL RESULT: Time of Discovery (FILTER TANK OPERATOR/CDT): 1:15 AM Time of Communication (FILTER TANK OPERATOR/CDT): 1:20 AM Licensed Practitioner Receiving Report: Dr. Henao in the ED Read Back Performed: Yes. Critical care attestation.: If time is entered above; I have spent that time in minutes in the direct care of this critically ill patient, excluding procedure time. ED Disposition Clinical Impression: Hypertensive emergency, Subdural hematoma Disposition: DC/TX-70 ANOTHER TYPE HLTHCARE Is pt being admited?: No Does the pt Need Aspirin: No Condition: Stable Time of Disposition: 03:52
[2019-08-15 04:23] VITALS: BP 149/90
== END 2019-08-15 04:24 | disposition other institution (70) ==
LOC: ED 00:24
DX: I16.1 Hypertensive emergency (principal); I62.00 Nontraumatic subdural hemorrhage, unspecified; I25.2 Old myocardial infarction; Z95.5 Presence of coronary angioplasty implant and graft; Z79.899 Other long term (current) drug therapy; Z88.0 Allergy status to penicillin
CPT/HCPCS: 36415; 70450; 71046; 80048; 83880; 84484; 85025; 93005; 93010; 96365; 96375; 99285; J1885; J1953; J2270

== ENCOUNTER 2019-08-29 02:10 | Emergency (ER) | payer SELFPAY ==
--- NOTE | 2019-08-29 03:01 | Emergency Department Report ---
ED General Adult HPI - General Chief complaint: High BP Stated complaint: HIGH B/P AND HEADACHE Time Seen by Provider: 08/29/19 02:52 Source: patient Mode of arrival: Ambulatory Limitations: No Limitations - History of Present Illness Initial comments: Chief complaint: I want to have my blood pressure checked out." HPI: Mr. Schuster is a very pleasant 49-year-old male with history of NC, CAD, HTN and recent ICH. On 08/15/19, dx'd with right subdural hematoma 12 mm in thickness (according to EMR). Transferred to [place]. Discharged last week from the hospital. He was able to go to work. Has not been feeling like himself. Poor appetite, a tad sluggish. He was able to drive to the ED this evening. He wanted to make sure his blood pressure was okay. He has f/u with compliance review officer Dr. Vo this Tuesday. Has been taking Tylenol for persistent headache since diagnosis. Headache is unchanged. Current medications include amlodipine 2.5 mg, lisinopril 40 mg, metoprolol 50 mg, 1000 mg -: Gradual, week(s) (2) Location: head Severity scale (0 -10): 5 Quality: aching Consistency: constant Improves with: medication Worsens with: none Associated Symptoms: malaise, other (fatigue feeling sluggish) - Related Data Previous Rx's Medication Instructions Recorded Last Taken Type HYDROcodone/ACETAMINOPHEN [Lortab 1 each PO Q6HR PRN #10 tablet 08/21/14 Unknown Rx 5-325 mg Tablet] Aspirin EC 325 mg PO QDAY tablet 01/12/19 Unknown Rx AtorvaSTATin [Lipitor] 80 mg PO QHS #30 tablet 01/12/19 Unknown Rx Clopidogrel [Plavix] 75 mg PO QDAY #30 tablet 01/12/19 Unknown Rx Lisinopril [Zestril TAB] 10 mg PO QDAY #30 tablet 01/12/19 Unknown Rx Metoprolol [Lopressor TAB] 12.5 mg PO BID #60 tablet 01/12/19 Unknown Rx Metoprolol [Lopressor] 12.5 mg PO BID #60 tablet 01/12/19 Unknown Rx Allergies Allergy/AdvReac Type Severity Reaction Status Date / Time lisinopril Allergy Unknown Verified 08/29/19 02:16 Penicillins Allergy Unknown Verified 08/21/14 14:21 ED Review of Systems ROS: Stated complaint: HIGH B/P AND HEADACHE Other details as noted in HPI Comment: All other systems reviewed and negative Constitutional: malaise. denies: fever Cardiovascular: denies: chest pain Neurological: headache. denies: numbness, paresthesias ED Past Medical Hx - Past Medical History Previous Medical History?: Yes Hx Hypertension: Yes Hx Heart Attack/AMI: Yes Hx HIV: No Additional medical history: gout. cerebral hemorrhage 08/2019 - Surgical History Hx Coronary Stent: Yes (x2, 01/2019) - Social History Smoking Status: Former Smoker Substance Use Type: None - Medications Home Medications: Home Medications Medication Instructions Recorded Confirmed Last Taken Type HYDROcodone/ACETAMINOPHEN [Lortab 1 each PO Q6HR PRN #10 tablet 08/21/14 01/10/19 Unknown Rx 5-325 mg Tablet] Aspirin EC 325 mg PO QDAY tablet 01/12/19 Unknown Rx AtorvaSTATin [Lipitor] 80 mg PO QHS #30 tablet 01/12/19 Unknown Rx Clopidogrel [Plavix] 75 mg PO QDAY #30 tablet 01/12/19 Unknown Rx Lisinopril [Zestril TAB] 10 mg PO QDAY #30 tablet 01/12/19 Unknown Rx Metoprolol [Lopressor TAB] 12.5 mg PO BID #60 tablet 01/12/19 Unknown Rx Metoprolol [Lopressor] 12.5 mg PO BID #60 tablet 01/12/19 Unknown Rx ED Physical Exam - General Limitations: No Limitations General appearance: alert, in no apparent distress, other (pleasant articulate inquisitive energetic) - Head Head exam: Present: atraumatic, normocephalic - Eye Eye exam: Present: normal appearance - ENT ENT exam: Present: mucous membranes moist - Neck Neck exam: Present: normal inspection, full ROM - Respiratory Respiratory exam: Present: normal lung sounds bilaterally. Absent: respiratory distress, wheezes, rales, rhonchi - Cardiovascular Cardiovascular Exam: Present: regular rate, normal rhythm, normal heart sounds. Absent: systolic murmur, diastolic murmur, rubs, gallop - GI/Abdominal GI/Abdominal exam: Present: soft, normal bowel sounds. Absent: distended, tenderness, guarding, rebound - Rectal Rectal exam: Present: deferred - Extremities Exam Extremities exam: Present: normal inspection - Neurological Exam Neurological exam: Present: alert, oriented X3 - Psychiatric Psychiatric exam: Present: normal affect, normal mood - Skin Skin exam: Present: warm, dry, intact, normal color. Absent: rash ED Course Vital Signs 08/29/19 02:16 Temperature 98.7 F Pulse Rate 72 Respiratory 18 Rate Blood Pressure 156/111 O2 Sat by Pulse 100 Oximetry ED Medical Decision Making - Medical Decision Making Mr. Schuster presents with poor appetite and fatigue since recent diagnosis of subdural hematoma. He appears well and exam today. I reassured him that his blood pressure should be managed with home medication regimen. He has follow-up compliance review officer this week. Given reassurance. Discharged home. Critical care attestation.: If time is entered above; I have spent that time in minutes in the direct care of this critically ill patient, excluding procedure time. ED Disposition Clinical Impression: Hx of subdural hematoma, HTN (hypertension) Disposition: - TO HOME OR SELFCARE Is pt being admited?: No Does the pt Need Aspirin: No Condition: Stable Instructions: Hypertension (ED) Referrals: KYRA VO MD [Staff Physician] - 3-5 Days MARCE VO MD [Staff Physician] - 3-5 Days Forms: Work/School Release Form(ED)
[2019-08-29 03:32] VITALS: BP 184/91
== END 2019-08-29 03:32 | disposition home or self-care (01) ==
LOC: ED 02:10
DX: I10 Essential (primary) hypertension (principal); I25.2 Old myocardial infarction; M10.9 Gout, unspecified; Z86.79 Personal history of other diseases of the circulatory system; Z95.5 Presence of coronary angioplasty implant and graft; Z87.891 Personal history of nicotine dependence; Z79.899 Other long term (current) drug therapy; Z88.0 Allergy status to penicillin; Z88.8 Allergy status to other drugs, medicaments and biological substances

== ENCOUNTER 2020-05-08 20:12 | Inpatient (IN) | payer SELFPAY ==
[2020-05-08] MEDS ORDERED: CLOPIDOGREL 300 MG TAB PO ONE (20:50)
[2020-05-08] MEDS ORDERED: HEPARIN 1,000 UNIT/1 ML VIAL IV ONE (20:51)
[2020-05-08] MEDS ORDERED: HEPARIN 10,000 UNITS/10 ML VIAL IV ONE (20:54)
--- NOTE | 2020-05-08 20:59 | Emergency Department Report ---
ED Chest Pain HPI - General Chief Complaint: Chest Pain Stated Complaint: CHEST PAIN, ELEVATED BLOOD PRESSURE PUI?: No Time Seen by Provider: 05/08/20 20:44 Source: patient Mode of arrival: Ambulatory Limitations: No Limitations - History of Present Illness Initial Comments: Mr. Schuster is a 49-year-old male with history of tobacco dependence, myocardial infarction status post PCI to the RCA in January 2019 hypertension who presents with chest pain sudden onset 3 PM 4 PM while working. 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 He had a sensation of heartburn 6-7 out of 10 in severity. No radiation. He also had shortness of breath nausea. Dry heaving. He was evaluated and treated for acute myocardial infarction here at this hospital January 2019. He does not follow up with a host coordinator. Patient took a full aspirin prior to arrival. He arrived via private auto. Complaint: chest pain -: Sudden, This afternoon Onset: during exertion Pain Location: substernal Pain Radiation: none Severity: severe Severity scale (0 -10): 7 Quality: other ("Heartburn") Consistency: constant Improves With: nothing Worsens With: nothing re: nausea, dyspnea Treatments Prior to Arrival: aspirin - Related Data Previous Rx's Medication Instructions Recorded Last Taken Type HYDROcodone/ACETAMINOPHEN [Lortab 1 each PO Q6HR PRN #10 tablet 08/21/14 Unknown Rx 5-325 mg Tablet] Aspirin EC [Ecotrin] 325 mg PO QDAY tablet 01/12/19 05/08/20 Rx AtorvaSTATin [Lipitor] 80 mg PO QHS #30 tablet 01/12/19 Unknown Rx Clopidogrel [Plavix] 75 mg PO QDAY #30 tablet 01/12/19 05/08/20 Rx Metoprolol [Lopressor TAB] 12.5 mg PO BID #60 tablet 01/12/19 05/08/20 Rx Metoprolol [Lopressor] 12.5 mg PO BID #60 tablet 01/12/19 05/08/20 Rx lisinopriL [Zestril TAB] 10 mg PO QDAY #30 tablet 01/12/19 Unknown Rx Allergies Allergy/AdvReac Type Severity Reaction Status Date / Time lisinopril Allergy Unknown Verified 08/29/19 02:16 Penicillins Allergy Unknown Verified 08/21/14 14:21 Heart Score - HEART Score History: Highly suspicious EKG: Significant ST-depression Age: 45-65 Risk factors: 1-2 risk factors Troponin: < normal limit HEART Score: 6 ED Review of Systems ROS: Stated complaint: CHEST PAIN, ELEVATED BLOOD PRESSURE Other details as noted in HPI Comment: All other systems reviewed and negative Constitutional: denies: fever, malaise Respiratory: shortness of breath. denies: cough Cardiovascular: chest pain Gastrointestinal: nausea, vomiting ED Past Medical Hx - Past Medical History Previous Medical History?: Yes Hx Hypertension: Yes Hx Heart Attack/AMI: Yes Hx HIV: No Additional medical history: gout. cerebral hemorrhage 08/2019 - Surgical History Past Surgical History?: Yes Hx Coronary Stent: Yes (x2, 01/2019) - Social History Smoking Status: Current Some Day Smoker Substance Use Type: None - Medications Home Medications: Home Medications Medication Instructions Recorded Confirmed Last Taken Type HYDROcodone/ACETAMINOPHEN [Lortab 1 each PO Q6HR PRN #10 tablet 08/21/14 05/09/20 Unknown Rx 5-325 mg Tablet] Aspirin EC [Ecotrin] 325 mg PO QDAY tablet 01/12/19 05/09/20 05/08/20 Rx AtorvaSTATin [Lipitor] 80 mg PO QHS #30 tablet 01/12/19 05/09/20 Unknown Rx Clopidogrel [Plavix] 75 mg PO QDAY #30 tablet 01/12/19 05/09/20 05/08/20 Rx Metoprolol [Lopressor TAB] 12.5 mg PO BID #60 tablet 01/12/19 05/09/20 05/08/20 Rx Metoprolol [Lopressor] 12.5 mg PO BID #60 tablet 01/12/19 05/09/20 05/08/20 Rx lisinopriL [Zestril TAB] 10 mg PO QDAY #30 tablet 01/12/19 05/09/20 Unknown Rx ED Physical Exam - General Limitations: No Limitations General appearance: alert, in no apparent distress, other (Appears nontoxic, no acute distress) - Head Head exam: Present: atraumatic, normocephalic - Eye Eye exam: Present: normal appearance - ENT ENT exam: Present: mucous membranes moist - Neck Neck exam: Present: normal inspection - Respiratory Respiratory exam: Present: normal lung sounds bilaterally. Absent: respiratory distress, wheezes, rales, rhonchi - Cardiovascular Cardiovascular Exam: Present: regular rate, normal rhythm, normal heart sounds. Absent: systolic murmur, diastolic murmur, rubs, gallop - GI/Abdominal GI/Abdominal exam: Present: soft, normal bowel sounds. Absent: distended, tenderness, guarding, rebound - Rectal Rectal exam: Present: deferred - Extremities Exam Extremities exam: Present: normal inspection - Neurological Exam Neurological exam: Present: alert, oriented X3 - Psychiatric Psychiatric exam: Present: normal affect, normal mood - Skin Skin exam: Present: warm, dry, intact, normal color. Absent: rash ED Course Vital Signs 05/08/20 05/08/20 05/08/20 20:22 20:43 20:51 Temperature 98.0 F Pulse Rate 83 88 Pulse Rate [ From Monitor] Respiratory 18 17 Rate Blood Pressure 202/143 196/143 O2 Sat by Pulse 98 97 93 Oximetry 05/08/20 05/08/20 05/08/20 21:06 21:09 21:11 Temperature Pulse Rate 77 71 Pulse Rate [ From Monitor] Respiratory 10 L 18 14 Rate Blood Pressure 179/139 177/122 O2 Sat by Pulse 99 100 100 Oximetry 05/08/20 05/08/20 05/08/20 21:15 23:00 23:30 Temperature 98.9 F Pulse Rate 81 94 H 92 H Pulse Rate [ From Monitor] Respiratory 21 Rate Blood Pressure 172/129 169/127 173/129 O2 Sat by Pulse 97 97 99 Oximetry 05/08/20 05/08/20 05/09/20 23:45 23:55 00:00 Temperature Pulse Rate 94 H 96 H Pulse Rate [ 95 H From Monitor] Respiratory 20 12 20 Rate Blood Pressure 171/123 163/115 O2 Sat by Pulse 99 99 98 Oximetry 05/09/20 00:11 Temperature Pulse Rate 92 H Pulse Rate [ From Monitor] Respiratory Rate Blood Pressure 193/48 O2 Sat by Pulse Oximetry ED Medical Decision Making - Lab Data Result diagrams: 05/08/20 23:50 05/08/20 20:56 - EKG Data EKG shows normal: sinus rhythm, axis, intervals Rate: normal - EKG Data Interpretation: acute AK 05/08/20 20:57 EKG obtained 2027 Normal sinus rhythm rate 80 bpm normal axis normal intervals ST elevation leads anterior leads inferior leads markedly changed from August 2019 - Radiology Data Radiology results: report reviewed - Medical Decision Making Mr. Schuster presents with sudden onset of chest pain this afternoon. EKG reveals anterior lateral ST elevation AK. I spoke with interventionalist Dr. Santos once I received EKG and evaluated patient. According to host coordinator recommendation, patient was treated with heparin bolus, Plavix, nitroglycerin infusion. Patient was taken emergently to cardiac catheterization lab. Critical care attestation.: If time is entered above; I have spent that time in minutes in the direct care of this critically ill patient, excluding procedure time. ED Disposition Clinical Impression: STEMI (ST elevation myocardial infarction), Acute anterolateral wall AK Disposition: OP ADMIT IP TO THIS HOSP Is pt being admited?: Yes Does the pt Need Aspirin: No Condition: Stable
[2020-05-08] MEDS ORDERED: NITROGLYCERIN DRIP 50 MG/250 ML BOTTLE IV SCH (21:00)
--- NOTE | 2020-05-08 21:03 | XRay Report ---
CHEST 2 VIEWS INDICATION: Chest Pain. COMPARISON: 08/15/2019 FINDINGS: Support devices: None. Heart: Within normal limits. Lungs/Pleura: No acute air space or interstitial disease. No significant pleural effusion. IMPRESSION: No acute findings. Signer Name: Ronny Barraza MD Signed: 05/08/2020 8:58 PM Workstation Name: [id number]
[2020-05-08 21:05] LABS: Basophils # (Auto) 0.1 K/mm3 (0.0-0.1); Basophils % (Auto) 0.8 % (0.0-1.8); Eosinophils % (Auto) 0.1 % (0.0-4.3); Hematocrit 52.2 % (35.5-45.6); Hemoglobin 17.8 gm/dl (11.8-15.2); Lymphocytes # (Auto) 1.1 K/mm3 (1.2-5.4); Lymphocytes % (Auto) 7.8 % (13.4-35.0); Mean Corpuscular HGB Conc 34 % (32-34); Mean Corpuscular Volume 100 fl (84-94); Monocytes # (Auto) 0.6 K/mm3 (0.0-0.8); Monocytes % (Auto) 4.6 % (0.0-7.3); Platelet Count 184 K/mm3 (140-440); Red Blood Count 5.24 M/mm3 (3.65-5.03)
[2020-05-08 21:20] LABS: BUN/Creatinine Ratio 11; Blood Urea Nitrogen 15 mg/dL (9-20); Calcium 9.4 mg/dL (8.4-10.2); Hemolysis Index 58
[2020-05-08] MEDS ORDERED: fentaNYL 100 MCG/2 ML INJ ONE (21:31)
[2020-05-08] MEDS ORDERED: MIDAZOLAM 2 MG/2 ML INJ ONE (21:31)
[2020-05-08] MEDS ORDERED: VERAPAMIL 5 MG/2 ML INJ ONE (21:32)
[2020-05-08] MEDS ORDERED: LIDOCAINE (2%) 20 MG/1 ML VIAL 20 ML MDV INFILTRATI ONE (21:32)
[2020-05-08] MEDS ORDERED: HEPARIN/NS 5000 UNIT/500ML 1,000 ML IR ONE (21:32)
[2020-05-08] MEDS ORDERED: NITROGLYCERIN SYRINGE 3 ML ONE (21:32)
[2020-05-08] MEDS ORDERED: SODIUM CHLORIDE 0.9% 1000 ML 1,000 ML ONE (21:33)
[2020-05-08] MEDS: HEPARIN 10,000 UNITS/10 ML VIAL ONE ×2 (21:48→22:22)
[2020-05-08] MEDS ORDERED: HEPARIN/NS 5000 UNIT/500ML 500 ML IR ONE (21:49)
[2020-05-08] MEDS ORDERED: ATROPINE 0.1% (1 MG/10 ML) CARDIAC SYRINGE ONE (21:55)
[2020-05-08] MEDS ORDERED: TIROFIBAN/NS 12,500 MCG/250 ML BAG IV ONE (21:55)
[2020-05-08] MEDS ORDERED: NITROGLYCERIN 0.4 MG TAB SUBL SL PRN (22:10)
[2020-05-08] MEDS ORDERED: MORPHINE 2 MG/1 ML INJ IV PRN (22:10)
[2020-05-08] MEDS ORDERED: hydrALAZINE 20 MG/1 ML INJ IV PRN (22:10)
[2020-05-08] MEDS ORDERED: ONDANSETRON 4 MG/2 ML INJ IV PRN (22:10)
[2020-05-08] MEDS ORDERED: MAGNESIUM HYDROXIDE (MOM) ORAL LIQD UDC PO PRN (22:10)
[2020-05-08] MEDS ORDERED: ACETAMINOPHEN 325 MG TAB PO PRN (22:10)
[2020-05-08] MEDS ORDERED: SODIUM CHLORIDE 0.9% 1000 ML 1,000 ML IV SCH (22:45)
[2020-05-08] MEDS ORDERED: TIROFIBAN/NS 12,500 MCG/250 ML BAG IV SCH (23:00)
--- NOTE | 2020-05-08 23:01 | Consultation ---
History of Present Illness Consult date: 05/08/20 Consult reason: other (Acute [place]) History of present illness: 49y M with CAD status post primary PCI of the RCA in 12/2018 for acute STEMI. He was implanted with DE stents. Admits to no cardiac follow up and no antiplatelets after he left the hospital a year ago. He indicates no prior knowledge of the strict antiplatelet requirements post coronary stents. He also does not take other GD medications and has continued to smoke cigare ttes. He presents today with recurrent chest pain, ECG consistent with a recurrent inferolateral STEMI. We found complete occlusion of the mid RCA within the prior stent, consistent with late stent thrombosis. Successful primary PCI restored VERA 3 flow, and we implanted 3.5-4.0mm baremetal stents. The patient has severe progression of disease proximal circumflex, for staged PCI. Past History Past Medical History: acute [place], CAD Social history: smoking Medications and Allergies Allergies Allergy/AdvReac Type Severity Reaction Status Date / Time lisinopril Allergy Unknown Verified 08/29/19 02:16 Penicillins Allergy Unknown Verified 08/21/14 14:21 Home Medications Medication Instructions Recorded Confirmed Last Taken Type HYDROcodone/ACETAMINOPHEN [Lortab 1 each PO Q6HR PRN #10 tablet 08/21/14 01/10/19 Unknown Rx 5-325 mg Tablet] Aspirin EC [Ecotrin] 325 mg PO QDAY tablet 01/12/19 Unknown Rx AtorvaSTATin [Lipitor] 80 mg PO QHS #30 tablet 01/12/19 Unknown Rx Clopidogrel [Plavix] 75 mg PO QDAY #30 tablet 01/12/19 Unknown Rx Metoprolol [Lopressor TAB] 12.5 mg PO BID #60 tablet 01/12/19 Unknown Rx Metoprolol [Lopressor] 12.5 mg PO BID #60 tablet 01/12/19 Unknown Rx lisinopriL [Zestril TAB] 10 mg PO QDAY #30 tablet 01/12/19 Unknown Rx Active Meds: Active Medications Acetaminophen (Tylenol) 650 mg PO Q6H PRN PRN Reason: Pain MILD(1-3)/Fever >100.5/NGUYEN Aspirin (Ecotrin) 325 mg PO QDAY BRITANY Hydralazine HCl (Apresoline) 10 mg IV Q6HR PRN PRN Reason: FOR SBP > target Magnesium Hydroxide (Milk Of Magnesia) 30 ml PO Q4H PRN PRN Reason: Constipation Morphine Sulfate (Morphine) 2 mg IV Q5MIN PRN PRN Reason: Chest Pain unrelieved by NTG Nitroglycerin (Nitrostat) 0.4 mg SL Q5M PRN PRN Reason: Chest Pain Ondansetron HCl (Zofran) 4 mg IV Q8H PRN PRN Reason: Nausea And Vomiting Sodium Chloride (Sodium Chloride Flush Syringe 10 Ml) 10 ml IV BID BRITANY Sodium Chloride (Sodium Chloride Flush Syringe 10 Ml) 10 ml IV PRN PRN PRN Reason: LINE FLUSH Review of Systems Cardiovascular: chest pain, shortness of breath, no orthopnea, no palpitations, no rapid/irregular heart beat, no edema, no syncope, no lightheadedness Physical Examination Vital Signs Temp Pulse Resp BP Pulse Ox 98.0 F 83 18 202/143 98 05/08/20 20:22 05/08/20 20:22 05/08/20 20:22 05/08/20 20:22 05/08/20 20:22 General appearance: no acute distress HEENT: Positive: PERRL Neck: Positive: neck supple Cardiac: Positive: Reg Rate and Rhythm Lungs: Positive: Decreased Breath Sounds Neuro: Positive: Grossly Intact Abdomen: Positive: Soft Male genitourinary: Positive: deferred Skin: Positive: Clear Extremities: Absent: edema Results 05/08/20 20:56 05/08/20 20:56 CBC 05/08/20 Range/Units 20:56 WBC 13.7 H (4.5-11.0) K/mm3 RBC 5.24 H (3.65-5.03) M/mm3 Hgb 17.8 H (11.8-15.2) gm/dl Hct 52.2 H (35.5-45.6) % Plt Count 184 (140-440) K/mm3 Lymph # 1.1 L (1.2-5.4) K/mm3 [place] # 0.6 (0.0-0.8) K/mm3 Eos # 0.0 (0.0-0.4) K/mm3 Baso # 0.1 (0.0-0.1) K/mm3 Comprehensive Metabolic Panel 05/08/20 Range/Units 20:56 Sodium 138 (137-145) mmol/L Potassium 4.5 (3.6-5.0) mmol/L Chloride 103.4 (98-107) mmol/L Carbon Dioxide 23 (22-30) mmol/L BUN 15 (9-20) mg/dL Creatinine 1.4 H (0.8-1.3) mg/dL Glucose 144 H (75-100) mg/dL Calcium 9.4 (8.4-10.2) mg/dL EKG interpretations - Telemetry EKG Rhythm: Sinus Rhythm (with inferolateral STEMI) Assessment and Plan - Patient Problems (1) STEMI (ST elevation myocardial infarction) Current Visit: Yes Status: Acute Plan to address problem: Acute inferolateral STEMI due to late stent thrombosis, patient not compliant with DAPT. Treated with primary PCI and implantation of BM stents, excellent result. 80% stenosis of the proximal circumflex for staged intervention.
--- NOTE | 2020-05-08 23:54 | Cardiac Catherization Report ---
CARDIAC CATHETERIZATION AND CORONARY ANGIOPLASTY REPORT REASON FOR PROCEDURE: The patient is a 49-year-old man with a history of coronary artery disease, who underwent primary angioplasty and stenting of the right coronary artery a year ago for an acute STEMI at that time. He presents to the hospital at this time with chest pain and ECG consistent with recurrent inferolateral wall ST elevation myocardial infarction. Apparently, the patient has been noncompliant with medical therapy including dual oral antiplatelet therapy, and has not followed up with his warp clamper for the EF for over a year following his interventional procedure. Emergency cardiac catheterization protocol was activated. PROCEDURES: 1. Left heart catheterization. 2. Selective left and right coronary angiography. 3. Angioplasty and stenting of the right coronary artery. 4. Sedation time, start 2135, end 2214. The call to the clinic administrator was received at 8:45 p.m., and the first balloon inflation was at 9:51 p.m. The patient was prepped and draped in a sterile fashion under emergency protocol. The right femoral artery was entered using Seldinger technique followed by placement of a 6-Czech sheath. Selective left and right coronary angiography was performed using a #4 left Diana catheter and a #4 right Diana guiding catheter. The angiograms were reviewed. CORONARY ANGIOGRAPHY: The left main coronary artery was free of significant disease. The left anterior descending artery contained mild diffuse atherosclerosis. The circumflex artery was a large caliber vessel that contained an 80% stenosis of its proximal AV groove segment before the origin of the mid obtuse marginal. The rest of the circumflex system contained [id number] atherosclerosis. The right coronary artery was dominant. This vessel was completely occluded in its mid segment. The occlusion was within a long previous stented segment of the right coronary artery. There was no forward flow. The mid right coronary occlusion is the infarct lesion. CORONARY ANGIOPLASTY: We commenced with primary angioplasty of the right coronary artery. A 0.014 inch Vat Tender 50 guidewire was directed into the vessel through the occluded segment. Following wire placement, we used a 3.0 mm balloon catheter and performed balloon angioplasty, with muslim of distal flow. There remained diffuse atherosclerosis and some thrombus within the vessel. We then deployed a 3.5 x 30 mm bare metal stent across the lesional segment of the mid vessel. Another 4.0 x 9 mm bare-metal stent was deployed in the proximal vessel. Following stenting, there was an excellent angiographic result at the treated sites, 0 residual stenosis and VERA 3 flow was restored. There was diffuse moderate atherosclerosis of the distal segments of the right coronary artery, which are recommended for conservative medical management. CONCLUSION: 1. Acute inferolateral wall ST elevation myocardial infarction. 2. Acute occlusion of the mid right coronary artery, representing late stent thrombosis. 3. Severe de johnathon stenosis of the proximal AV groove circumflex. 4. Successful primary angioplasty and stenting of the right coronary artery, the infarct lesion. Bare-metal stents were selected due to the patient's noncompliance with antiplatelet therapy and presentation with late thrombosis within a drug-eluting stent. The patient will be admitted to the CCU for post-MT management. He will be recommended for staged elective intervention of the de johnathon circumflex disease. JOB# [id number] ANTHONY/VASU
[2020-05-09] MEDS ORDERED: hydrALAZINE 20 MG/1 ML INJ ONE (00:05)
[2020-05-09 00:17] LABS: Basophils % (Auto) 0.5 % (0.0-1.8); Hematocrit 49.1 % (35.5-45.6); Hemoglobin 16.8 gm/dl (11.8-15.2); Lymphocytes # (Auto) 1.1 K/mm3 (1.2-5.4); Lymphocytes % (Auto) 10.8 % (13.4-35.0); Mean Corpuscular HGB Conc 34 % (32-34); Mean Corpuscular Volume 101 fl (84-94); Monocytes # (Auto) 0.3 K/mm3 (0.0-0.8); Monocytes % (Auto) 3.5 % (0.0-7.3); Platelet Count 182 K/mm3 (140-440); Red Blood Count 4.86 M/mm3 (3.65-5.03); Red Cell Distribution Width 13.7 % (13.2-15.2)
--- NOTE | 2020-05-09 00:55 | History and Physical Report ---
History of Present Illness Date of examination: 05/08/20 Date of admission: 05/08/20 22:10 Chief complaint: Chest pain History of present illness: 49-year-old -[place] male with known history of hypertension, gout and history of coronary artery disease with stent placement in January 2019 presenting to the emergency room today complaining of sudden onset of chest pain. Patient was working when chest pain suddenly began. 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 C hest pain was nonradiating. It was associated with some nausea and some mild shortness of breath. He denies any headache or dizziness, denies any vomiting or abdominal pain. Denies any fever or chills. Patient does not follow-up with any stockroom inventory clerk. He continues to smoke tobacco on a daily basis. Evaluation in the emergency room today reveals ST elevation PA. Patient was immediately taken to the Radiology Manager: complete occlusion of the mid RCA within the prior stent was noticed. Patient had successful stent placement and subsequently admitted into the intensive care unit. Past History Past Medical History: acute PA, CAD Past Surgical History: No surgical history, PTCA Social history: smoking Family history: no significant family history (Current daily smoker) Medications and Allergies Allergies Allergy/AdvReac Type Severity Reaction Status Date / Time lisinopril Allergy Unknown Verified 08/29/19 02:16 Penicillins Allergy Unknown Verified 08/21/14 14:21 Home Medications Medication Instructions Recorded Confirmed Last Taken Type HYDROcodone/ACETAMINOPHEN [Lortab 1 each PO Q6HR PRN #10 tablet 08/21/14 05/09/20 Unknown Rx 5-325 mg Tablet] Aspirin EC [Ecotrin] 325 mg PO QDAY 60 Days #60 tablet 05/10/20 Unknown Rx AtorvaSTATin [Lipitor] 80 mg PO QHS #30 tablet 05/10/20 Unknown Rx Clopidogrel [Plavix] 75 mg PO QDAY #30 tablet 05/10/20 Unknown Rx ISOSORBIDE MONOnitrate [Imdur ER] 30 mg PO QDAY 60 Days #60 tablet 05/10/20 Unknown Rx Losartan [Cozaar] 50 mg PO QDAY 60 Days #60 tablet 05/10/20 Unknown Rx Metoprolol [Lopressor TAB] 25 mg PO Q8H 60 Days #120 tablet 05/10/20 Unknown Rx Active Meds: Active Medications Acetaminophen (Tylenol) 650 mg PO Q6H PRN PRN Reason: Pain MILD(1-3)/Fever >100.5/NGUYEN Atorvastatin Calcium (Lipitor) 40 mg PO QHS BRITANY Clopidogrel Bisulfate (Plavix) 75 mg PO QDAY BRITANY Hydralazine HCl (Apresoline) 10 mg IV Q6HR PRN PRN Reason: FOR SBP > target Last Admin: 05/09/20 00:11 Dose: 10 mg Documented by: Sodium Chloride (Nacl 0.9% 1000 Ml) 1,000 mls @ 100 mls/hr IV DIRECT BRITANY Stop: 05/09/20 10:44 Tirofiban/Sodium Chloride (Aggrastat Drip (12.5 Mg/250 Ml)) 12,500 mcg in 250 mls @ 15 mls/hr IV DIRECT BRITANY; Protocol Stop: 05/09/20 16:59 Last Admin: 05/08/20 22:00 Dose: 15 mls/hr Documented by: Isosorbide Mononitrate (Imdur) 30 mg PO QDAY [facility] Magnesium Hydroxide (Milk Of Magnesia) 30 ml PO Q4H PRN PRN Reason: Constipation Metoprolol Tartrate (Metoprolol) 12.5 mg PO BID [facility] Morphine Sulfate (Morphine) 2 mg IV Q5MIN PRN PRN Reason: Chest Pain unrelieved by NTG Nitroglycerin (Nitrostat) 0.4 mg SL Q5M PRN PRN Reason: Chest Pain Ondansetron HCl (Zofran) 4 mg IV Q8H PRN PRN Reason: Nausea And Vomiting Sodium Chloride (Sodium Chloride Flush Syringe 10 Ml) 10 ml IV BID [facility] Sodium Chloride (Sodium Chloride Flush Syringe 10 Ml) 10 ml IV PRN PRN PRN Reason: LINE FLUSH Last Admin: 05/09/20 00:11 Dose: 10 ml Documented by: Review of Systems Constitutional: no fever, no chills Ears, nose, mouth and throat: no nasal congestion, no sore throat Cardiovascular: chest pain, no palpitations Respiratory: shortness of breath, no cough Gastrointestinal: nausea, no abdominal pain, no vomiting, no diarrhea Genitourinary Male: no dysuria, no hematuria, no flank pain Musculoskeletal: no neck pain, no low back pain Integumentary: no rash, no pruritis Neurological: no headaches, no confusion Psychiatric: no anxiety, no depression Exam - Constitutional Vitals: Temp Pulse Resp BP Pulse Ox 98.9 F 91 H 21 159/114 98 05/08/20 23:00 05/09/20 00:30 05/09/20 00:30 05/09/20 00:30 05/09/20 00:30 General appearance: Present: no acute distress, well-nourished - EENT Eyes: Present: PERRL, EOM intact. Absent: scleral icterus ENT: hearing intact, clear oral mucosa, dentition normal - Neck Neck: Present: supple, normal ROM - Respiratory Respiratory effort: normal Respiratory: bilateral: CTA - Cardiovascular Rhythm: regular Heart Sounds: Present: S1 & S2. Absent: gallop, systolic murmur, diastolic murmur, rub - Extremities Extremities: no ischemia, pulses intact, pulses symmetrical, No edema, Full ROM Peripheral Pulses: within normal limits - Abdominal General gastrointestinal: Present: soft, non-tender, non-distended, normal bowel sounds. Absent: mass - Integumentary Integumentary: Present: clear, warm, dry - Musculoskeletal Musculoskeletal: strength equal bilaterally - Psychiatric Psychiatric: appropriate mood/affect, intact judgment & insight, memory intact, cooperative - Neurologic Neurologic: CNII-XII intact, no focal deficits, moves all extremities HEART Score - HEART Score EKG: Significant ST-depression Age: 45-65 Risk factors: 1-2 risk factors Troponin: Troponin T < 0.010 ng/mL (0.00-0.029) 05/08/20 20:56 Troponin: < normal limit Results - Labs CBC & Chem 7: 05/10/20 04:43 05/10/20 04:43 Labs: Abnormal lab results 05/08/20 05/08/20 05/08/20 Range/Units 20:56 20:56 23:50 WBC 13.7 H (4.5-11.0) K/mm3 RBC 5.24 H (3.65-5.03) M/mm3 Hgb 17.8 H 16.8 H (11.8-15.2) gm/dl Hct 52.2 H 49.1 H (35.5-45.6) % MCV 100 H 101 H (84-94) fl MCH 34 H 35 H (28-32) pg Lymph % (Auto) 7.8 L 10.8 L (13.4-35.0) % Lymph # 1.1 L 1.1 L (1.2-5.4) K/mm3 Seg Neutrophils % 86.7 H 85.2 H (40.0-70.0) % Seg Neutrophils # 11.9 H 8.3 H (1.8-7.7) K/mm3 Creatinine 1.4 H (0.8-1.3) mg/dL Glucose 144 H (75-100) mg/dL Assessment and Plan - Patient Problems (1) STEMI (ST elevation myocardial infarction) Status: Acute Plan to address problem: Patient had successful stent placement. He has been started on Aggrastat, Plavix and heparin. Patient will be followed up by cardiology. (2) CAD (coronary artery disease) Status: Chronic Plan to address problem: Patient had stent placement in January 2019. He has not followed up with any stockroom inventory clerk. He had another stent placed today in the right RCA. (3) HTN (hypertension) Status: Chronic Plan to address problem: We will resume routine home medications and monitor vital signs closely. (4) Tobacco use Status: Chronic Plan to address problem: Patient counseled on quitting tobacco use. He verbalized understanding. Will offer nicotine patch as needed. (5) Full code status Status: Acute
[2020-05-09 00:59] LABS: BUN/Creatinine Ratio 12; Blood Urea Nitrogen 14 mg/dL (9-20); Calcium 9.1 mg/dL (8.4-10.2); Hemolysis Index 40
[2020-05-09 04:00] LABS: Chol/HDL Ratio 4.31 %; HDL Cholesterol 45 mg/dL (40-59); LDL Cholesterol,Direct 142 mg/dL (50-130)
[2020-05-09 06:29] LABS: Basophils # (Auto) 0.1 K/mm3 (0.0-0.1); Basophils % (Auto) 1.1 % (0.0-1.8); Eosinophils % (Auto) 0.2 % (0.0-4.3); Hematocrit 46.9 % (35.5-45.6); Hemoglobin 16.1 gm/dl (11.8-15.2); Lymphocytes # (Auto) 1.9 K/mm3 (1.2-5.4); Lymphocytes % (Auto) 23.8 % (13.4-35.0); Mean Corpuscular HGB Conc 34 % (32-34); Mean Corpuscular Volume 99 fl (84-94); Monocytes # (Auto) 0.6 K/mm3 (0.0-0.8); Monocytes % (Auto) 7.2 % (0.0-7.3); Platelet Count 175 K/mm3 (140-440); Red Blood Count 4.74 M/mm3 (3.65-5.03); Red Cell Distribution Width 13.9 % (13.2-15.2)
[2020-05-09 06:38] LABS: BUN/Creatinine Ratio 13; Blood Urea Nitrogen 14 mg/dL (9-20); Calcium 8.9 mg/dL (8.4-10.2); Hemolysis Index 5
[2020-05-09 06:39] LABS: INR 1.05 (0.87-1.13)
--- NOTE | 2020-05-09 07:14 | XRay Report ---
CHEST 1 VIEW 05/09/2020 7:03 AM INDICATION / CLINICAL INFORMATION: post pci. COMPARISON: One view of the chest from 05/08/2020. FINDINGS: SUPPORT DEVICES: None. HEART / MEDIASTINUM: No significant abnormality. LUNGS / PLEURA: No significant pulmonary or pleural abnormality. No pneumothorax. ADDITIONAL FINDINGS: No significant additional findings. IMPRESSION: 1. No acute abnormality of the chest. Signer Name: Vicente Serra MD Signed: 05/09/2020 7:10 AM Workstation Name: [id number]
[2020-05-09] MEDS ORDERED: METOPROLOL TARTRATE 25 MG TAB PO SCH (10:00)
[2020-05-09] MEDS ORDERED: ASPIRIN EC 325 MG TAB PO SCH (10:00)
--- NOTE | 2020-05-09 10:20 | Progress Note ---
Assessment and Plan Recurrent inferolateral STEMI due to late stent thrombosis, patient not compliant with DAPT. Treated with primary PCI and implantation of BM stents. The patient has severe progression of disease proximal circumflex, for staged PCI. Hx of ND s/p PCI of the RCA using NICK 12/2018 Noncompliant with outpatient cardiac f/u and medications Continued tobacco abuse Recommendations: Advised smoking cessation and compliance with medications. Echocardiogram for LVEF reassessment. The patient has severe progression of disease proximal circumflex, planned for staged PCI. Subjective Date of service: 05/09/20 Interval history: status post PCI of the Objective Vital Signs Temp Pulse Pulse Resp BP Pulse Ox 05/09/20 07:00 82 12 143/104 97 05/09/20 06:00 83 16 136/100 98 05/09/20 05:13 86 18 98 05/09/20 05:00 86 16 137/98 98 05/09/20 04:07 89 19 137/97 98 05/09/20 03:30 84 19 139/99 98 05/09/20 03:00 84 20 140/102 98 05/09/20 02:30 85 22 139/100 99 05/09/20 02:00 89 20 140/101 99 05/09/20 01:30 95 H 21 98 05/09/20 00:30 91 H 21 159/114 98 05/09/20 00:11 92 H 193/48 05/09/20 00:00 96 H 20 163/115 98 05/08/20 23:55 95 H 12 99 05/08/20 23:45 94 H 20 171/123 99 05/08/20 23:30 92 H 173/129 99 05/08/20 23:00 98.9 F 94 H 169/127 97 05/08/20 21:15 81 21 172/129 97 05/08/20 21:11 71 14 177/122 100 05/08/20 21:09 18 100 05/08/20 21:06 77 10 L 179/139 99 05/08/20 20:51 88 17 196/143 93 05/08/20 20:43 97 05/08/20 20:22 98.0 F 83 18 202/143 98 - Physical Examination HEENT: Positive: PERRL Neck: Positive: neck supple Neuro: Positive: Grossly Intact Abdomen: Positive: Soft Skin: Positive: Clear Extremities: Absent: edema - Labs and Meds Cardiac Enzymes 05/09/20 Range/Units 05:58 CK-MB (CK-2) 62.0 H (0.0-4.0) ng/mL Coagulation 05/09/20 Range/Units 05:58 PT 13.8 (12.2-14.9) Sec. INR 1.05 (0.87-1.13) Lipids 05/09/20 Range/Units Unknown Triglycerides 87 (2-149) mg/dL Cholesterol 194 (50-199) mg/dL HDL Cholesterol 45 (40-59) mg/dL Cholesterol/HDL Ratio 4.31 % CBC 05/08/20 05/08/20 05/09/20 Range/Units 20:56 23:50 05:58 WBC 13.7 H 9.7 8.0 (4.5-11.0) K/mm3 RBC 5.24 H 4.86 4.74 (3.65-5.03) M/mm3 Hgb 17.8 H 16.8 H 16.1 H (11.8-15.2) gm/dl Hct 52.2 H 49.1 H 46.9 H (35.5-45.6) % Plt Count 184 182 175 (140-440) K/mm3 Lymph # 1.1 L 1.1 L 1.9 (1.2-5.4) K/mm3 [place] # 0.6 0.3 0.6 (0.0-0.8) K/mm3 Eos # 0.0 0.0 0.0 (0.0-0.4) K/mm3 Baso # 0.1 0.0 0.1 (0.0-0.1) K/mm3 Comprehensive Metabolic Panel 05/08/20 05/09/20 05/09/20 Range/Units 20:56 05:58 Unknown Sodium 138 139 139 (137-145) mmol/L Potassium 4.5 3.9 4.4 (3.6-5.0) mmol/L Chloride 103.4 104.4 103.8 (98-107) mmol/L Carbon Dioxide 23 22 17 L (22-30) mmol/L BUN 15 14 14 (9-20) mg/dL Creatinine 1.4 H 1.1 1.2 (0.8-1.3) mg/dL Glucose 144 H 117 H 134 H (75-100) mg/dL Calcium 9.4 8.9 9.1 (8.4-10.2) mg/dL
[2020-05-09] MEDS: ASPIRIN EC 325 MG TAB PO SCH (10:28)
[2020-05-09] MEDS: CLOPIDOGREL 75 MG TAB PO SCH (10:28)
[2020-05-09] MEDS ORDERED: VERAPAMIL 5 MG/2 ML INJ ONE (13:19)
[2020-05-09] MEDS ORDERED: NITROGLYCERIN SYRINGE 3 ML ONE (13:19)
[2020-05-09] MEDS ORDERED: HEPARIN 10,000 UNITS/10 ML VIAL ONE ×2 (13:19→13:56)
[2020-05-09] MEDS ORDERED: LIDOCAINE (2%) 20 MG/1 ML VIAL 20 ML MDV INFILTRATI ONE (13:19)
[2020-05-09] MEDS ORDERED: HEPARIN/NS 5000 UNIT/500ML 1,000 ML IR ONE (13:19)
[2020-05-09] MEDS ORDERED: MIDAZOLAM 2 MG/2 ML INJ ONE (13:23)
[2020-05-09] MEDS ORDERED: fentaNYL 100 MCG/2 ML INJ ONE (13:24)
[2020-05-09] MEDS ORDERED: CLOPIDOGREL 300 MG TAB ONE (13:56)
--- NOTE | 2020-05-09 14:25 | Event Note ---
Date: 05/09/20 Successful second vessel coronary intervention, with a 5.0 x 13 mm bare-metal stent implanted into the proximal circumflex artery with excellent angiographic result. No complications. We will continue aggressive medical therapy including dual oral antiplatelet therapy with Plavix, patient may be to telemetry, anticipate discharge over the weekend in 24 to 48 hours. I have discussed extensively with him the absolute need for him to maintain therapy with aspirin and Plavix, uninterrupted until his fitter tacker recommends otherwise. I have also strongly recommended smoking cessation, and compliance with other guideline directed medical therapy for his multivessel coronary artery disease.
[2020-05-09] MEDS ORDERED: SODIUM CHLORIDE 0.9% 1000 ML 1,000 ML IV SCH (14:30)
--- NOTE | 2020-05-09 15:00 | Cardiac Catherization Report ---
CORONARY ANGIOPLASTY REPORT REASON FOR PROCEDURE: The patient is a 49-year-old man who presented with an acute inferolateral wall ST elevation myocardial infarction and underwent successful primary angioplasty and stenting of an occluded right coronary artery. He returns to the labeling machine operator today for staged, second vessel intervention of a non-infarct ulcerated 80% stenosis of the proximal circumflex artery. PROCEDURES: 1. Coronary angioplasty and stenting of the proximal circumflex artery. 2. Sedation time, start 1346, end 1405. The patient was prepped and draped in a sterile fashion after informed consent. The right radial cath site was prepped and draped after a negative Yaw's test. The right radial artery was entered using Seldinger technique followed by placement of a 6-Upper Sorbian hydrophilic sheath. Routine radial cocktail was administered via the sheath. We selected a #3.0 XB guiding catheter and advanced to the left coronary ostium. Pre-intervention angiograms were then done. We then deployed a 0.014 inch Diver Helper 50 guidewire into the circumflex, across the lesional segment. Following wire placement, in a primary stenting maneuver, we deployed a 5.0 x 13 mm bare-metal stent across the lesional segment and inflated the stent optimal pressures. Following stenting, the wires were removed and angiograms revealed an excellent angiographic result, 0 residual stenosis across the lesional segment and VERA 3 flow was maintained down the vessel. There was moderate diffuse atherosclerosis of the distal segments of the circumflex artery, which were not suitable for intervention and recommended for medical management. Procedure was well tolerated by the patient and there were no complications. The catheters and the wires were removed, sheath removed, and hemostasis achieved using a TR band. CONCLUSION: Successful second-vessel angioplasty and stenting of the proximal circumflex artery. A 5.0 x 13 mm bare-metal stent was deployed across the lesional segment with an excellent angiographic result and 0 residual stenosis. JOB# [id number] CA/NTS
--- NOTE | 2020-05-09 17:01 | Progress Note ---
Assessment and Plan Assessment and plan: 49-year-old -Marshallese male with known history of hypertension, gout and history of coronary artery disease with stent placement in January 2019 presenting to the emergency room with a chief complaint of sudden onset of chest pain. Patient was working when chest pain suddenly began. 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 Chest pain was nonradiating. It was associated with some nausea and some mild shortness of breath. He denies any headache or dizziness, denies any vomiting or abdominal pain. Denies any fever or chills. Patient does not follow-up with any supervisory aide. He continues to smoke tobacco on a daily basis. Evaluation in the emergency room today reveals ST elevation [place]. Patient was immediately taken to the Equipment Associate: complete occlusion of the mid RCA within the prior stent was noticed. Patient had successful stent placement and subsequently admitted into the intensive care unit. 05/09. Patient seen and examined at bedside this morning. He denies any chest pain-says he feels 10 times much better than early during admission. Cardiology is on board and plans to have staged PCI for coronary lesions. He is on aspirin and Plavix - Patient Problems (1) STEMI (ST elevation myocardial infarction) Current Visit: Yes Status: Acute Plan to address problem: He is now status post cath which showed complete occlusion of the RCA-this was stented. Plan for staged PCI by cardiology Continue aspirin and Plavix (2) Tobacco use Current Visit: No Status: Chronic Plan to address problem: Spent more than 10 minutes counseling patient on need to stop tobacco abuse History Interval history: See assessment and plan Hospitalist Physical - Constitutional Vitals: Temp Pulse Resp BP Pulse Ox 98.9 F 78 15 135/95 99 05/08/20 23:00 05/09/20 10:28 05/09/20 09:00 05/09/20 10:28 05/09/20 09:00 General appearance: Present: no acute distress, well-nourished - EENT Eyes: Present: PERRL, EOM intact - Neck Neck: Present: supple, normal ROM - Respiratory Respiratory: bilateral: CTA - Cardiovascular Rhythm: regular Heart Sounds: Present: S1 & S2 - Extremities Extremities: no ischemia - Abdominal General gastrointestinal: soft, non-tender - Psychiatric Psychiatric: appropriate mood/affect - Neurologic Neurologic: CNII-XII intact HEART Score - HEART Score EKG: Significant ST-depression Age: 45-65 Risk factors: 1-2 risk factors Troponin: Troponin T 0.271 ng/mL (0.00-0.029) H* D 05/09/20 Unknown Troponin: < normal limit Results - Labs CBC & Chem 7: 05/09/20 05:58 05/09/20 Unknown Labs: Laboratory Last Values WBC 8.0 K/mm3 (4.5-11.0) 05/09/20 05:58 RBC 4.74 M/mm3 (3.65-5.03) 05/09/20 05:58 Hgb 16.1 gm/dl (11.8-15.2) H 05/09/20 05:58 Hct 46.9 % (35.5-45.6) H 05/09/20 05:58 MCV 99 fl (84-94) H 05/09/20 05:58 MCH 34 pg (28-32) H 05/09/20 05:58 MCHC 34 % (32-34) 05/09/20 05:58 RDW 13.9 % (13.2-15.2) 05/09/20 05:58 Plt Count 175 K/mm3 (140-440) 05/09/20 05:58 Lymph % (Auto) 23.8 % (13.4-35.0) 05/09/20 05:58 [place] % (Auto) 7.2 % (0.0-7.3) 05/09/20 05:58 Eos % (Auto) 0.2 % (0.0-4.3) 05/09/20 05:58 Baso % (Auto) 1.1 % (0.0-1.8) 05/09/20 05:58 Lymph # 1.9 K/mm3 (1.2-5.4) 05/09/20 05:58 [place] # 0.6 K/mm3 (0.0-0.8) 05/09/20 05:58 Eos # 0.0 K/mm3 (0.0-0.4) 05/09/20 05:58 Baso # 0.1 K/mm3 (0.0-0.1) 05/09/20 05:58 Seg Neutrophils % 67.7 % (40.0-70.0) 05/09/20 05:58 Seg Neutrophils # 5.4 K/mm3 (1.8-7.7) 05/09/20 05:58 PT 13.8 Sec. (12.2-14.9) 05/09/20 05:58 INR 1.05 (0.87-1.13) 05/09/20 05:58 Sodium 139 mmol/L (137-145) 05/09/20 Unknown Potassium 4.4 mmol/L (3.6-5.0) 05/09/20 Unknown Chloride 103.8 mmol/L (98-107) 05/09/20 Unknown Carbon Dioxide 17 mmol/L (22-30) L 05/09/20 Unknown Anion Gap 23 mmol/L 05/09/20 Unknown BUN 14 mg/dL (9-20) 05/09/20 Unknown Creatinine 1.2 mg/dL (0.8-1.3) 05/09/20 Unknown Estimated GFR > 60 ml/min 05/09/20 Unknown BUN/Creatinine Ratio 12 % 05/09/20 Unknown Glucose 134 mg/dL (75-100) H 05/09/20 Unknown Calcium 9.1 mg/dL (8.4-10.2) 05/09/20 Unknown Total Creatine Kinase 749 units/L (55-170) H 05/09/20 05:58 CK-MB (CK-2) 62.0 ng/mL (0.0-4.0) H 05/09/20 05:58 CK-MB (CK-2) Rel Index 8.2 (0-4) H 05/09/20 05:58 Troponin T 0.271 ng/mL (0.00-0.029) H* D 05/09/20 Unknown Triglycerides 87 mg/dL (2-149) 05/09/20 Unknown Cholesterol 194 mg/dL (50-199) 05/09/20 Unknown LDL Cholesterol Direct 142 mg/dL (50-130) H 05/09/20 Unknown HDL Cholesterol 45 mg/dL (40-59) 05/09/20 Unknown Cholesterol/HDL Ratio 4.31 % 05/09/20 Unknown Blood Type O POSITIVE 05/08/20 21:00 Antibody Screen Negative 05/08/20 21:00 - Diagnostic Impressions Diagnostic Impressions: Echocardiogram 05/08/20 22:49 Transthoracic Echocardiogram Indication: Acute IL BP: 127/91 HR: 72 Conclusions *Global left ventricular systolic function is normal. *The estimated ejection fraction is 50-55%. *Mild to moderate concentric left ventricular hypertrophy is observed. *There is mild mitral regurgitation. *There is trace tricuspid regurgitation. Findings Left Ventricle: The left ventricular chamber size is normal. Mild to moderate concentric left ventricular hypertrophy is observed. Global left ventricular systolic function is normal. The estimated ejection fraction is 50-55%. Left Atrium: The left atrial chamber size is normal. Right Ventricle: The right ventricular cavity size is normal. The right ventricular global systolic function is normal. Right Atrium: The right atrial cavity size is normal. Aortic Valve: The aortic valve is trileaflet. The aortic valve leaflets are mildly thickened. There is no evidence of aortic regurgitation. There is no evidence of aortic stenosis. Mitral Valve: The mitral valve leaflets are mildly thickened. There is mild mitral regurgitation. There is no evidence of mitral stenosis. Tricuspid Valve: There is trace tricuspid regurgitation. No pulmonary hypertension is noted. Pulmonic Valve: There is mild pulmonic regurgitation. Pericardium: There is no pericardial effusion. Aorta: There is no dilatation of the ascending aorta. There is no dilatation of the aortic root. Venous: The inferior vena cava is dilated. Measurements Chambers 2D Name Value Normal Range IVSd (2D) 1.7 cm (0.6 - 1.1) LVPWd (2D) 1.83 cm (0.6 - 1.1) LVIDd (2D) 4.83 cm (3.7 - 5.6) LVIDs (2D) 3.76 cm (2 - 3.8) LV FS (2D) 22.16 % - EF Teichholz (2D) 44.63 % - Ao root diameter (2D) 3.56 cm (2 - 3.7) Volumes/Mass Name Value Normal Range LA ESV SP 4CH (A/L) 32.08 ml - LA ESV SP 2CH (A/L) 58.83 ml - LA ESV BP (A/L) 44.74 ml - LA ESV BP (A/L) index 21.1 ml/m2 - LA ESV SP 4CH (MOD) 30.5 ml - LA ESV SP 2CH (MOD) 57.72 ml - LA ESV BP (MOD) 43.11 ml - LA ESV BP (MOD) index 20.33 ml/m2 - Diastolic/Systolic Function Name Value Normal Range MV E-wave Vmax 0.46 m/sec - MV deceleration time 243.47 msec - MV A-wave Vmax 0.83 m/sec - MV E:A ratio 0.55 ratio - Aortic Valve Name Value Normal Range AV Vmax 1.51 m/sec - AV VTI 28.77 cm - AV peak gradient 9.13 mmHg - AV mean gradient 5.17 mmHg - LVOT diameter 2.23 cm - LVOT Vmax 0.98 m/sec - LVOT VTI 17.62 cm - LVOT peak gradient 3.86 mmHg - LVOT mean gradient 2.65 mmHg - SV LVOT 68.89 ml - ISH (continuity Vmax) 2.54 cm2 - ISH (continuity VTI) 2.39 cm2 - Tricuspid Valve Name Value Normal Range TR Vmax 1.7 m/sec - TR peak gradient 11 mmHg - RAP 3 mmHg - RVSP 14 mmHg - IVC diameter 2.21 cm (1.2 - 2.3) Pulmonic Valve/Qp:Qs Name Value Normal Range PV Vmax 0.77 m/sec - PV peak gradient 2.36 mmHg - FL end-diastolic Vmax 0.78 m/sec - PV acceleration time 114.18 msec - [place]/IV: IV Catheter Type [right Peripheral IV forearm] IV Catheter Type [left ac] Peripheral IV Active Medications - Current Medications Current Medications: Generic Name Dose Route Start Last Admin Trade Name Freq PRN Reason Stop Dose Admin Acetaminophen 650 mg 05/08/20 22:10 Tylenol PO Q6H PRN Pain MILD(1-3)/Fever >100.5/NGUYEN Aspirin 325 mg 05/09/20 10:00 05/09/20 10:28 Ecotrin PO 325 mg QDAY BRITANY Administration Atorvastatin Calcium 40 mg 05/09/20 22:00 Lipitor PO QHS BRITANY Clopidogrel Bisulfate 75 mg 05/09/20 10:00 05/09/20 10:28 Plavix PO 75 mg QDAY BRITANY Administration Hydralazine HCl 10 mg 05/08/20 22:10 05/09/20 00:11 Apresoline IV 10 mg Q6HR PRN Administration FOR SBP > target Sodium Chloride 1,000 mls @ 100 mls/hr 05/09/20 14:30 Nacl 0.9% 1000 Ml IV 05/10/20 00:29 DIRECT BRITANY Isosorbide Mononitrate 30 mg 05/09/20 10:00 05/09/20 10:28 Imdur PO 30 mg QDAY BRITANY Administration Losartan Potassium 50 mg 05/09/20 15:00 Cozaar PO QDAY BRITANY Magnesium Hydroxide 30 ml 05/08/20 22:10 Milk Of Magnesia PO Q4H PRN Constipation Metoprolol Tartrate 25 mg 05/09/20 15:00 Metoprolol PO Q8H BRITANY Morphine Sulfate 2 mg 05/08/20 22:10 Morphine IV Q5MIN PRN Chest Pain unrelieved by NTG Nitroglycerin 0.4 mg 05/08/20 22:10 Nitrostat SL Q5M PRN Chest Pain Ondansetron HCl 4 mg 05/08/20 22:10 Zofran IV Q8H PRN Nausea And Vomiting Sodium Chloride 10 ml 05/09/20 10:00 05/09/20 10:30 Sodium Chloride Flush Syringe 10 Ml IV 10 ml BID BRITANY Administration Sodium Chloride 10 ml 05/08/20 22:10 05/09/20 00:11 Sodium Chloride Flush Syringe 10 Ml IV 10 ml PRN PRN Administration LINE FLUSH Nutrition/Malnutrition Assess - Dietary Evaluation Nutrition/Malnutrition Findings: Nutrition Notes Start: 05/09/20 08:34 Freq: Status: Active Protocol: Document 05/09/20 08:34 LM (Rec: 05/09/20 08:35 LM [id number]) Nutrition Notes Need for Assessment generated from: MD Order Initial or Follow up Brief Note Subjective/Other Information MD consult for diet education. Pt in ED. Nutrition Intervention Follow-Up By: 05/12/20 Additional Comments F/U for diet education
[2020-05-09] MEDS: METOPROLOL TARTRATE 25 MG TAB PO SCH ×2 (18:42→22:27)
[2020-05-09] MEDS: LOSARTAN 50 MG TAB PO SCH (18:42)
[2020-05-09 22:55] LABS: Bilirubin,Urine NEG (Negative); Blood,Urine NEG (Negative); Color,Urine Yellow (Yellow); Mucus,Urine FEW /HPF; Protein,Urine <15 mg/dL mg/dL (Negative); Urobilinogen,Urine < 2.0 mg/dL (<2.0)
[2020-05-10 05:52] LABS: Basophils % (Auto) 0.4 % (0.0-1.8); Eosinophils # (Auto) 0.1 K/mm3 (0.0-0.4); Eosinophils % (Auto) 0.9 % (0.0-4.3); Hematocrit 43.2 % (35.5-45.6); Lymphocytes # (Auto) 1.9 K/mm3 (1.2-5.4); Lymphocytes % (Auto) 25.3 % (13.4-35.0); Mean Corpuscular HGB Conc 35 % (32-34); Mean Corpuscular Volume 99 fl (84-94); Monocytes # (Auto) 0.6 K/mm3 (0.0-0.8); Monocytes % (Auto) 8.3 % (0.0-7.3); Platelet Count 146 K/mm3 (140-440); Red Blood Count 4.35 M/mm3 (3.65-5.03); Red Cell Distribution Width 13.7 % (13.2-15.2)
[2020-05-10 06:05] LABS: Creatine Kinase MB 40.3 ng/mL (0.0-4.0)
[2020-05-10 06:10] LABS: BUN/Creatinine Ratio 13; Blood Urea Nitrogen 15 mg/dL (9-20); Calcium 8.6 mg/dL (8.4-10.2); Hemolysis Index 6
--- NOTE | 2020-05-10 06:47 | XRay Report ---
CHEST 1 VIEW 0615 INDICATION / CLINICAL INFORMATION: post pci COMPARISON: 05/09/2020 FINDINGS: SUPPORT DEVICES: None HEART / MEDIASTINUM: No significant abnormality. LUNGS / PLEURA: No significant pulmonary or pleural abnormality. No pneumothorax. ADDITIONAL FINDINGS: No significant additional findings. IMPRESSION: No significant acute abnormality Signer Name: Kishor Guadalupe MD Signed: 05/10/2020 6:42 AM Workstation Name: [id number]
[2020-05-10] MEDS: METOPROLOL TARTRATE 25 MG TAB PO SCH (07:03)
[2020-05-10] MEDS: ASPIRIN EC 325 MG TAB PO SCH (09:56)
[2020-05-10] MEDS: LOSARTAN 50 MG TAB PO SCH (09:57)
[2020-05-10] MEDS: CLOPIDOGREL 75 MG TAB PO SCH (09:57)
--- NOTE | 2020-05-10 10:48 | Progress Note ---
Assessment and Plan - Patient Problems (1) STEMI (ST elevation myocardial infarction) Current Visit: Yes Status: Acute Plan to address problem: Acute inferolateral STEMI . Treated with primary PCI and implantation of BM stents, excellent result. Residual left ventricular systolic function is well- preserved with ejection fraction 50 to 55%. Non-infarct, ulcerated 80% stenosis of the proximal circumflex treated with staged septal vessel intervention and implantation of additional bare-metal stents. Patient is stable for cardiac discharge on medical management. Subjective Date of service: 05/10/20 Interval history: Patient looks and feels well following his second vessel circumflex intervention performed yesterday. He is in a stable sinus rhythm and blood pressure is stable. Objective Vital Signs Temp Pulse Pulse Resp BP Pulse Ox 05/10/20 10:01 64 10 L 132/95 98 05/10/20 09:57 69 126/73 05/10/20 09:00 69 20 126/82 97 05/10/20 08:57 98 05/10/20 08:15 80 20 94 05/10/20 08:01 62 14 139/107 97 05/10/20 08:00 98.6 F 05/10/20 07:03 63 117/76 05/10/20 07:00 61 25 H 117/76 97 05/10/20 06:00 67 21 107/79 97 05/10/20 05:00 63 19 111/71 97 05/10/20 04:00 71 80 20 112/70 94 05/10/20 03:31 98.4 F 05/10/20 03:00 67 17 129/88 95 05/10/20 02:00 69 21 129/83 95 05/10/20 01:00 64 19 119/80 95 05/10/20 00:00 72 68 18 118/80 95 05/09/20 23:40 98.2 F 05/09/20 23:00 64 14 124/81 97 05/09/20 22:39 66 9 L 101/66 97 05/09/20 22:27 76 120/87 05/09/20 22:00 80 12 134/88 94 05/09/20 21:01 77 13 133/89 96 05/09/20 20:00 98.3 F 81 74 21 132/87 95 05/09/20 19:00 72 23 127/87 96 05/09/20 18:42 74 128/98 07/31/20 18:00 71 17 121/86 97 05/09/20 17:01 77 22 139/82 97 05/09/20 17:00 69 18 100 05/09/20 16:00 81 14 127/84 97 05/09/20 15:00 69 14 129/93 92 05/09/20 14:40 97 05/09/20 13:00 80 19 97 - Physical Examination General: Appears Well, No Apparent Distress HEENT: Positive: PERRL Neck: Positive: neck supple Cardiac: Positive: Reg Rate and Rhythm Lungs: Positive: clear to auscultation Neuro: Positive: Grossly Intact Abdomen: Positive: Soft Skin: Positive: Clear Extremities: Absent: edema - Labs and Meds Cardiac Enzymes 05/10/20 Range/Units 04:43 CK-MB (CK-2) 40.3 H (0.0-4.0) ng/mL CBC 05/10/20 Range/Units 04:43 WBC 7.3 (4.5-11.0) K/mm3 RBC 4.35 (3.65-5.03) M/mm3 Hgb 15.0 (11.8-15.2) gm/dl Hct 43.2 (35.5-45.6) % Plt Count 146 (140-440) K/mm3 Lymph # 1.9 (1.2-5.4) K/mm3 [place] # 0.6 (0.0-0.8) K/mm3 Eos # 0.1 (0.0-0.4) K/mm3 Baso # 0.0 (0.0-0.1) K/mm3 Comprehensive Metabolic Panel 05/10/20 Range/Units 04:43 Sodium 142 (137-145) mmol/L Potassium 3.6 (3.6-5.0) mmol/L Chloride 106.8 (98-107) mmol/L Carbon Dioxide 24 D (22-30) mmol/L BUN 15 (9-20) mg/dL Creatinine 1.2 (0.8-1.3) mg/dL Glucose 120 H (75-100) mg/dL Calcium 8.6 (8.4-10.2) mg/dL
[2020-05-10 12:31] VITALS: BP 133/65
--- NOTE | 2020-05-10 12:57 | Discharge Summary ---
Providers - Providers Date of Admission: 05/08/20 22:10 Date of discharge: 05/10/20 Attending physician: FRANNIE HICKS 05/08/20 Consult to Cardiac Rehabilitation [CONS] Routine Reason For Exam: post pci 05/08/20 22:10 Consult to Dietitian/Nutrition [CONS] Routine Physician Instructions: Reason For Exam: Reason for Consult: Diet education 05/09/20 Consult to Cardiac Rehabilitation [CONS] Routine Reason For Exam: post pci 05/09/20 00:55 Consult to Physician [CONS] Routine Comment: Consulting Provider: EULOGIO MORSE Physician Instructions: Reason For Exam: STEMI , S/P STENT PLACEMENT 05/09/20 02:10 Consult to Physician [CONS] Routine Comment: Consulting Provider: NGOZI MONTALVO Physician Instructions: Reason For Exam: STEMI S/P STENT PLACEMENT Primary care physician: MASTER DATA ANALYST Hospitalization Condition: Stable Hospital course: 49-year-old -[place] male with known history of hypertension, gout and history of coronary artery disease with stent placement in January 2019 presenting to the emergency room with a chief complaint of sudden onset of chest pain. Patient was working when chest pain suddenly began. 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 Chest pain was nonradiating. It was associated with some nausea and some mild shortness of breath. He denies any headache or dizziness, denies any vomiting or abdominal pain. Denies any fever or chills. Patient does not follow-up with any pediatric urologist. He continues to smoke tobacco on a daily basis. Evaluation in the emergency room today reveals ST elevation [place]. Patient was immediately taken to the Family Welfare Social Work Professor: complete occlusion of the mid RCA within the prior stent was noticed. Patient had successful stent placement and subsequently admitted into the intensive care unit. 05/09. Patient seen and examined at bedside this morning. He denies any chest pain-says he feels 10 times much better than early during admission. Cardiology is on board and plans to have staged PCI for coronary lesions. He is on aspirin and Plavix 05/10. He is doing great. Has been cleared from cardiology standpoint for discharge. Medications have been prescribed. He will follow up with his pediatric urologist in the office. Disposition: TO HOME OR SELFCARE - Discharge Diagnoses (1) STEMI (ST elevation myocardial infarction) Status: Acute (2) Tobacco use Status: Chronic Core Measure Documentation - Palliative Care Palliative Care/ Comfort Measures: Not Applicable - Core Measures Any of the following diagnoses?: acute NH - Acute NH Discharge Requirements Aspirin at discharge: Yes SWAPNA/ARB for LVSD if EF <40%: Yes Beta kacie at discharge: Yes Statin for LDL = or >100 mg/dl on DC: Yes Exam - Constitutional Vitals: Temp Pulse Resp BP Pulse Ox 97.7 F 108 H 14 133/65 78 L 05/10/20 12:00 05/10/20 12:20 05/10/20 12:00 05/10/20 12:00 05/10/20 12:11 General appearance: Present: no acute distress, well-nourished - EENT Eyes: Present: PERRL ENT: hearing intact, clear oral mucosa - Neck Neck: Present: supple, normal ROM - Respiratory Respiratory effort: normal Respiratory: bilateral: CTA - Cardiovascular Heart Sounds: Present: S1 & S2. Absent: rub, click - Extremities Extremities: pulses symmetrical, No edema Peripheral Pulses: within normal limits - Abdominal General gastrointestinal: Present: soft, non-tender, non-distended, normal bowel sounds Male genitourinary: Present: normal - Integumentary Integumentary: Present: clear, warm, dry - Musculoskeletal Musculoskeletal: gait normal, strength equal bilaterally - Psychiatric Psychiatric: appropriate mood/affect, intact judgment & insight - Neurologic Neurologic: CNII-XII intact, moves all extremities Plan Diet: low fat, low cholesterol Assessment: Follow up with your pediatric urologist in 1-2 weeks Follow up with: PRIMARY CARE, [Primary Care Provider] - 7 Days Prescriptions: AtorvaSTATin [Lipitor] 80 mg PO QHS #30 tablet Losartan [Cozaar] 50 mg PO QDAY 60 Days #60 tablet Aspirin EC [Ecotrin] 325 mg PO QDAY 60 Days #60 tablet ISOSORBIDE MONOnitrate [Imdur ER] 30 mg PO QDAY 60 Days #60 tablet Metoprolol [Lopressor TAB] 25 mg PO Q8H 60 Days #120 tablet Clopidogrel [Plavix] 75 mg PO QDAY #30 tablet
== END 2020-05-10 15:06 | disposition home or self-care (01) | DRG 249 ==
LOC: ED 20:12 → CC1 22:10
PROVIDERS: ADMIT Internal Medicine Geriatric Medicine; ATTEND Internal Medicine
PROC: 02703DZ Dilation of Coronary Artery, One Artery with Intraluminal Device, Percutaneous Approach (ICD-10-PCS; principal; 2020-05-08)
PROC: 4A023N7 Measurement of Cardiac Sampling and Pressure, Left Heart, Percutaneous Approach (ICD-10-PCS; 2020-05-08)
PROC: B2111ZZ Fluoroscopy of Multiple Coronary Arteries using Low Osmolar Contrast (ICD-10-PCS; 2020-05-08)
PROC: 02703DZ Dilation of Coronary Artery, One Artery with Intraluminal Device, Percutaneous Approach (ICD-10-PCS; 2020-05-09)
DX: I21.19 ST elevation (STEMI) myocardial infarction involving other coronary artery of inferior wall (principal); I10 Essential (primary) hypertension; I25.10 Atherosclerotic heart disease of native coronary artery without angina pectoris; M10.9 Gout, unspecified; F17.200 Nicotine dependence, unspecified, uncomplicated; Z95.5 Presence of coronary angioplasty implant and graft; Z88.0 Allergy status to penicillin; Z79.899 Other long term (current) drug therapy; Z79.82 Long term (current) use of aspirin; Z71.6 Tobacco abuse counseling
CPT/HCPCS: 36415; 71045; 80048; 80061; 81001; 82550; 82553; 84484; 85014; 85018; 85025; 85610; 86850; 86900; 86901; 87086; 92928; 92941; 93005; 93306; 93454; 99406; G0378; A9270-GY; C1725; C1760; C1769; C1876; C1887; C1894; J0360; J0461; J1644; J2250; J3010; J3246; J7030; Q9967

== ENCOUNTER 2022-04-11 04:24 | Emergency (ER) | payer SELFPAY ==
[2022-04-11] MEDS ORDERED: cloNIDine 0.2 MG TAB PO STA ×2 (05:15→06:16)
[2022-04-11] MEDS ORDERED: HYDROcodone/ACETAMINOPHEN 5-325 MG TAB PO STA (05:19)
[2022-04-11 09:04] VITALS: BP 169/106
--- NOTE | 2022-04-12 13:15 | Electrocardiograph Report ---
[facility] Test Date: 2022-04-11 Test Time: 04:59:57 Pat Name: TADEO PATTERSON Department: Room: Gender: M Metal Cutter: YESENIA : 1970 Requested By: QUYEN FONTENOT Order Number: [id number] Reading MD: Gigi Rivas Measurements Intervals [place] Rate: 87 P: 106 [place]: 186 QRS: -10 QRSD: 111 T: 22 QT: 391 QTc: 470 Interpretive Statements Sinus rhythm Biatrial enlargement Left ventricular hypertrophy Inferior infarct, old Nonspecific T abnormalities, lateral leads No previous ECG available for comparison Electronically Signed On 04-12-2022 13:14:11 EDT by Gigi Rivas
== END 2022-04-11 09:04 | disposition home or self-care (01) ==
LOC: ED 04:24
DX: I10 Essential (primary) hypertension (principal); Z53.21 Procedure and treatment not carried out due to patient leaving prior to being seen by health care provider
CPT/HCPCS: 93005; J3490